=== PATIENT | female | born 1935 | race Caucasian/White ===

== ENCOUNTER 2020-12-21 11:18 | Inpatient (IN) | payer OTHER, BC ==
[2020-12-21 12:28] LABS: BASO % 0.9 % (0-2.0); EOS % 2.5 % (0-4.5); HEMATOCRIT 30.8 % (32.4-45.2); HEMOGLOBIN 9.8 GM/dL (10.7-15.3); LYMPH % 15.1 % (8-40); MCHC 31.9 g/dl (32.0-36.0); MEAN CELL VOLUME 57.3 fl (80-96); MEAN PLT VOLUME 8.3 fl (7.5-11.1); NEUT % 73.5 % (42.8-82.8); PLATELET COUNT 347 K/MM3 (134-434); RBC 5.37 M/mm3 (3.60-5.2); RDW 17.1 % (11.6-15.6); WHITE BLOOD COUNT 8.2 K/mm3 (4.0-10.0)
[2020-12-21] MEDS ORDERED: ACETAMINOPHEN WITH CODEINE 300MG/30MG TABLET PO ONE (12:35)
[2020-12-21 12:39] LABS: INR 1.36 (0.83-1.09); PROTHROMBIN TIME (PATIENT) 16.3 SEC (9.7-13.0)
[2020-12-21 12:42] LABS: ACTIVATED PTT 30.9 SECONDS (25.2-36.5)
[2020-12-21 12:46] LABS: MCH 18.3 pg (25.7-33.7)
[2020-12-21 12:51] LABS: CHLORIDE 104 mmol/L (98-107); SODIUM 136 mmol/L (136-145)
[2020-12-21] MEDS ORDERED: ACETAMINOPHEN WITH CODEINE 300MG/30MG TABLET ONE (12:53)
[2020-12-21 12:55] LABS: ALBUMIN 3.5 g/dl (3.4-5.0); ANION GAP 7 MMOL/L (8-16); BLOOD UREA NITROGEN 42.1 mg/dL (7-18); CALCIUM 8.8 mg/dL (8.5-10.1); CO2 25 mmol/L (21-32); LIPASE 90 U/L (73-393)
[2020-12-21 12:56] LABS: GLUCOSE,RANDOM 97 mg/dL (74-106); MAGNESIUM 2.3 mg/dL (1.8-2.4)
[2020-12-21 12:58] LABS: CREATININE 1.8 mg/dL (0.55-1.3); PHOSPHOROUS 4.7 mg/dL (2.5-4.9); SGOT/AST 22 U/L (15-37); SGPT/ALT 11 U/L (13-61)
[2020-12-21 13:00] LABS: BILIRUBIN,TOTAL 0.6 mg/dL (0.2-1); TOT PROT 7.3 g/dl (6.4-8.2)
[2020-12-21 13:01] LABS: ALK PHOS 78 U/L (45-117)
[2020-12-21 14:42] LABS: ANISOCYTOSIS 2+; MACROCYTOSIS 0; OVALOCYTE 1+; PLATELET ESTIMATE NORMAL
[2020-12-21] MEDS ORDERED: ACETAMINOPHEN WITH CODEINE 300MG/30MG TABLET PO PRN (22:05)
[2020-12-21] MEDS ORDERED: ARIPiprazole 10 MG TABLET PO SCH (22:15)
[2020-12-21] MEDS ORDERED: CHOLECALCIFEROL (VIT D3) 1,000 UNIT (25 MCG) TABLET PO SCH (22:15)
[2020-12-21 22:28] LABS: INR 1.44 (0.83-1.09); PROTHROMBIN TIME (PATIENT) 17.2 SEC (9.7-13.0)
[2020-12-21] MEDS ORDERED: SODIUM CHLORIDE 0.45% 1,000 ML IV SCH (22:45)
[2020-12-21] MEDS ORDERED: metoPROLOL SUCCINATE 25 MG TAB.SR.24H (FP) PO ONE (23:00)
[2020-12-21] MEDS ORDERED: dilTIAZem HCL 60 MG TABLET PO ONE (23:00)
[2020-12-21] MEDS: ACETAMINOPHEN WITH CODEINE 300MG/30MG TABLET PO PRN (23:00)
[2020-12-21] MEDS: WARFARIN NA 3 MG TABLET PO SCH (23:01)
[2020-12-21] MEDS: ENOXAPARIN NA (PORCINE) 100 MG/1 ML DISP.SYRIN SQ SCH (23:02)
[2020-12-21 23:33] VITALS: BMI 41.3
[2020-12-22 07:53] LABS: BASO % 0.7 % (0-2.0); EOS % 3.9 % (0-4.5); HEMOGLOBIN 9.1 GM/dL (10.7-15.3); LYMPH % 21.9 % (8-40); MCHC 31.4 g/dl (32.0-36.0); MEAN CELL VOLUME 57.9 fl (80-96); MEAN PLT VOLUME 8.9 fl (7.5-11.1); NEUT % 64.5 % (42.8-82.8); PLATELET COUNT 292 K/MM3 (134-434); RBC 5.01 M/mm3 (3.60-5.2)
[2020-12-22 07:56] LABS: MCH 18.2 pg (25.7-33.7)
[2020-12-22 08:13] LABS: BLOOD UREA NITROGEN 43.6 mg/dL (7-18)
[2020-12-22 08:14] LABS: CALCIUM 8.3 mg/dL (8.5-10.1); MAGNESIUM 2.1 mg/dL (1.8-2.4)
[2020-12-22 08:18] LABS: PHOSPHOROUS 4.7 mg/dL (2.5-4.9)
[2020-12-22 08:19] LABS: BILIRUBIN,TOTAL 0.9 mg/dL (0.2-1); TOT PROT 6.3 g/dl (6.4-8.2)
[2020-12-22 09:02] LABS: EPI CELLS 17 /uL (0-25.1); HYALINE CASTS 5 /uL (0-3.1); PH,URINE 6.5 (5.0-8.0); URINE APPEARANCE TURBID; URINE BACTERIA 2330 /uL (0-1359); URINE BILIRUBIN NEGATIVE (NEGATIVE); URINE COLOR YELLOW; URINE GLUCOSE (UA) NEGATIVE (NEGATIVE); URINE KETONE NEGATIVE (NEGATIVE); URINE LEUK ESTERASE 3+ (NEGATIVE); URINE NITRITE NEGATIVE (NEGATIVE); URINE PROTEIN 2+ (NEGATIVE); URINE RBC 659 /uL (0-23.9); URINE UROBILINOGEN 0.2 mg/dL (0.2-1.0); URINE WBC 4303 /uL (0-25.8)
[2020-12-22] MEDS ORDERED: PT OWN MED DRAWER 7, Y5N ONE ×2 (09:49→20:46)
[2020-12-22] MEDS ORDERED: metoPROLOL SUCCINATE 25 MG TAB.SR.24H (FP) PO SCH (10:00)
[2020-12-22] MEDS ORDERED: FLU VACCINE (FLULAVAL) PF 60 MCG/0.5 ML SYRINGE 2020-2021 IM ONE (10:00)
[2020-12-22] MEDS: GABAPENTIN 100 MG CAPSULE PO SCH ×2 (10:20→21:01)
[2020-12-22] MEDS: CHOLECALCIFEROL (VIT D3) 1,000 UNIT (25 MCG) TABLET PO SCH (10:20)
[2020-12-22] MEDS: ASCORBIC ACID 250 MG TABLET (FP) PO SCH (10:20)
[2020-12-22] MEDS: dilTIAZem HCL 60 MG TABLET PO SCH ×2 (10:20→21:01)
[2020-12-22] MEDS: metoPROLOL SUCCINATE 25 MG TAB.SR.24H (FP) PO SCH ×2 (10:20→21:02)
[2020-12-22] MEDS: MULTIVITAMINS (DAILY MVI) TABLET (FP) PO SCH (10:20)
[2020-12-22] MEDS: ARIPiprazole 10 MG TABLET PO SCH (10:20)
[2020-12-22] MEDS: TICAGRELOR 90 MG TABLET PO SCH ×2 (10:21→21:02)
[2020-12-22] MEDS: ACETAMINOPHEN WITH CODEINE 300MG/30MG TABLET PO PRN ×3 (10:21→22:20)
[2020-12-22] MEDS: ENOXAPARIN NA (PORCINE) 100 MG/1 ML DISP.SYRIN SQ SCH (10:21)
[2020-12-22] MEDS: WARFARIN NA 3 MG TABLET PO SCH (17:22)
[2020-12-22] MEDS: PANTOPRAZOLE 40 MG TABLET PO SCH (17:22)
[2020-12-22 19:15] LABS: EPI CELLS 17 /uL (0-25.1); HYALINE CASTS 3 /uL (0-3.1); PH,URINE 6.5 (5.0-8.0); URINE APPEARANCE TURBID; URINE BACTERIA 856 /uL (0-1359); URINE BILIRUBIN NEGATIVE (NEGATIVE); URINE COLOR YELLOW; URINE GLUCOSE (UA) NEGATIVE (NEGATIVE); URINE KETONE NEGATIVE (NEGATIVE); URINE LEUK ESTERASE 3+ (NEGATIVE); URINE NITRITE NEGATIVE (NEGATIVE); URINE PROTEIN 2+ (NEGATIVE); URINE RBC 2181 /uL (0-23.9); URINE UROBILINOGEN 0.2 mg/dL (0.2-1.0); URINE WBC 11966 /uL (0-25.8)
[2020-12-22] MEDS: AMOX TR/POT CLAV 500MG/125MG TABLETS (FP) PO SCH (19:23)
[2020-12-23 08:02] LABS: INR 1.44 (0.83-1.09); PROTHROMBIN TIME (PATIENT) 17.5 SEC (9.7-13.0)
[2020-12-23 08:08] LABS: HEMATOCRIT 30.7 % (32.4-45.2); HEMOGLOBIN 9.6 GM/dL (10.7-15.3); MCHC 31.2 g/dl (32.0-36.0); MEAN CELL VOLUME 58.5 fl (80-96); MEAN PLT VOLUME 8.7 fl (7.5-11.1); PLATELET COUNT 280 K/MM3 (134-434); RBC 5.26 M/mm3 (3.60-5.2); RDW 17.1 % (11.6-15.6)
[2020-12-23 08:17] LABS: MCH 18.3 pg (25.7-33.7)
[2020-12-23 08:29] LABS: CALCIUM 8.6 mg/dL (8.5-10.1)
[2020-12-23 08:30] LABS: BLOOD UREA NITROGEN 44.7 mg/dL (7-18); MAGNESIUM 2.2 mg/dL (1.8-2.4)
[2020-12-23 08:33] LABS: CREATININE 1.8 mg/dL (0.55-1.3); PHOSPHOROUS 4.4 mg/dL (2.5-4.9)
[2020-12-23 08:34] LABS: BILIRUBIN,TOTAL 1.2 mg/dL (0.2-1); TOT PROT 6.6 g/dl (6.4-8.2)
[2020-12-23] MEDS ORDERED: PT OWN MED DRAWER 7, Y5N ONE ×2 (09:26→21:07)
[2020-12-23] MEDS: ACETAMINOPHEN WITH CODEINE 300MG/30MG TABLET PO PRN ×4 (09:34→23:23)
[2020-12-23] MEDS: ASCORBIC ACID 250 MG TABLET (FP) PO SCH (09:34)
[2020-12-23] MEDS: GABAPENTIN 100 MG CAPSULE PO SCH ×2 (09:34→21:24)
[2020-12-23] MEDS: metoPROLOL SUCCINATE 25 MG TAB.SR.24H (FP) PO SCH ×2 (09:35→21:25)
[2020-12-23] MEDS: CHOLECALCIFEROL (VIT D3) 1,000 UNIT (25 MCG) TABLET PO SCH (09:35)
[2020-12-23] MEDS: dilTIAZem HCL 60 MG TABLET PO SCH ×2 (09:35→21:25)
[2020-12-23] MEDS: PANTOPRAZOLE 40 MG TABLET PO SCH (09:35)
[2020-12-23] MEDS: ARIPiprazole 10 MG TABLET PO SCH (09:35)
[2020-12-23] MEDS: AMOX TR/POT CLAV 500MG/125MG TABLETS (FP) PO SCH ×2 (09:35→17:53)
[2020-12-23] MEDS: MULTIVITAMINS (DAILY MVI) TABLET (FP) PO SCH (09:35)
[2020-12-23] MEDS: TICAGRELOR 90 MG TABLET PO SCH ×2 (09:35→21:25)
[2020-12-23] MEDS: WARFARIN NA 3 MG TABLET PO SCH (17:53)
[2020-12-23] MEDS ORDERED: WARFARIN NA 5 MG TABLET PO SCH (18:00)
[2020-12-24] MEDS: ACETAMINOPHEN 325 MG TABLET (FP) PO PRN (06:57)
[2020-12-24 07:20] LABS: HEMATOCRIT 28.4 % (32.4-45.2); MCHC 31.7 g/dl (32.0-36.0); MEAN CELL VOLUME 57.4 fl (80-96); MEAN PLT VOLUME 8.5 fl (7.5-11.1); PLATELET COUNT 291 K/MM3 (134-434); RBC 4.94 M/mm3 (3.60-5.2); WHITE BLOOD COUNT 7.2 K/mm3 (4.0-10.0)
[2020-12-24 07:22] LABS: MCH 18.2 pg (25.7-33.7)
[2020-12-24 07:30] LABS: INR 1.54 (0.83-1.09); PROTHROMBIN TIME (PATIENT) 18.4 SEC (9.7-13.0)
[2020-12-24 07:54] LABS: CALCIUM 8.4 mg/dL (8.5-10.1)
[2020-12-24 07:55] LABS: ALBUMIN 2.8 g/dl (3.4-5.0); BLOOD UREA NITROGEN 42.5 mg/dL (7-18)
[2020-12-24 07:58] LABS: CREATININE 1.7 mg/dL (0.55-1.3)
[2020-12-24 08:00] LABS: BILIRUBIN,TOTAL 0.6 mg/dL (0.2-1); TOT PROT 6.1 g/dl (6.4-8.2)
[2020-12-24] MEDS ORDERED: DOXYCYCLINE HYCLATE 100 MG VIAL ONE ×2 (09:55→20:51)
[2020-12-24] MEDS ORDERED: DEXTROSE 5%-WATER 100 ML IVPB ONE ×2 (09:55→20:52)
[2020-12-24] MEDS ORDERED: PT OWN MED DRAWER 7, Y5N ONE ×2 (09:55→20:53)
[2020-12-24] MEDS: DOXYCYCLINE INJECTION 100 MG in DEXTROSE 5%-WATER 100 ML IVPB SCH ×2 (10:20→21:06)
[2020-12-24] MEDS: MULTIVITAMINS (DAILY MVI) TABLET (FP) PO SCH (10:21)
[2020-12-24] MEDS: dilTIAZem HCL 60 MG TABLET PO SCH ×2 (10:21→21:07)
[2020-12-24] MEDS: PANTOPRAZOLE 40 MG TABLET PO SCH (10:21)
[2020-12-24] MEDS: metoPROLOL SUCCINATE 25 MG TAB.SR.24H (FP) PO SCH ×2 (10:21→21:07)
[2020-12-24] MEDS: GABAPENTIN 100 MG CAPSULE PO SCH ×2 (10:21→21:07)
[2020-12-24] MEDS: CHOLECALCIFEROL (VIT D3) 1,000 UNIT (25 MCG) TABLET PO SCH (10:21)
[2020-12-24] MEDS: ARIPiprazole 10 MG TABLET PO SCH ×2 (10:22→16:38)
[2020-12-24] MEDS: ASCORBIC ACID 250 MG TABLET (FP) PO SCH (10:23)
[2020-12-24] MEDS: TICAGRELOR 90 MG TABLET PO SCH ×2 (10:23→21:33)
[2020-12-24] MEDS ORDERED: BISACODYL 5 MG TABLET.DR (FP) PO PRN (10:46)
[2020-12-24] MEDS: ACETAMINOPHEN WITH CODEINE 300MG/30MG TABLET PO PRN ×2 (14:43→18:46)
[2020-12-24] MEDS ORDERED: DOCUSATE NA 100 MG/10 ML UNIT-DOSE CUPS PO PRN (15:38)
[2020-12-24] MEDS: POLYETHYLENE GLYCOL 3350 119 GM BTL PO SCH (16:36)
[2020-12-24] MEDS: WARFARIN NA 3 MG TABLET PO SCH (18:45)
[2020-12-25] MEDS ORDERED: ACETAMINOPHEN WITH CODEINE 300MG/30MG TABLET PO ONE (00:58)
[2020-12-25] MEDS ORDERED: PT OWN MED DRAWER 7, Y5N ONE ×2 (01:02→09:11)
[2020-12-25 07:11] LABS: HEMATOCRIT 29.5 % (32.4-45.2); HEMOGLOBIN 9.5 GM/dL (10.7-15.3); MCHC 32.1 g/dl (32.0-36.0); MEAN PLT VOLUME 8.5 fl (7.5-11.1); PLATELET COUNT 306 K/MM3 (134-434); RBC 5.08 M/mm3 (3.60-5.2); RDW 17.1 % (11.6-15.6); WHITE BLOOD COUNT 9.1 K/mm3 (4.0-10.0)
[2020-12-25 07:16] LABS: MCH 18.6 pg (25.7-33.7)
[2020-12-25 07:23] LABS: INR 1.52 (0.83-1.09); PROTHROMBIN TIME (PATIENT) 18.5 SEC (9.7-13.0)
[2020-12-25 07:36] LABS: BLOOD UREA NITROGEN 35.3 mg/dL (7-18)
[2020-12-25 07:39] LABS: CREATININE 1.5 mg/dL (0.55-1.3)
[2020-12-25 07:40] LABS: BILIRUBIN,TOTAL 0.7 mg/dL (0.2-1); TOT PROT 6.6 g/dl (6.4-8.2)
[2020-12-25 07:48] VITALS: TEMP 98.7
[2020-12-25] MEDS: ACETAMINOPHEN 325 MG TABLET (FP) PO PRN ×2 (08:16→18:46)
[2020-12-25] MEDS ORDERED: DOXYCYCLINE HYCLATE 100 MG VIAL ONE (09:10)
[2020-12-25] MEDS ORDERED: DEXTROSE 5%-WATER 100 ML IVPB ONE (09:11)
[2020-12-25] MEDS: CHOLECALCIFEROL (VIT D3) 1,000 UNIT (25 MCG) TABLET PO SCH (09:59)
[2020-12-25] MEDS: GABAPENTIN 100 MG CAPSULE PO SCH (10:00)
[2020-12-25] MEDS: ASCORBIC ACID 250 MG TABLET (FP) PO SCH (10:00)
[2020-12-25] MEDS: TICAGRELOR 90 MG TABLET PO SCH (10:00)
[2020-12-25] MEDS: ARIPiprazole 10 MG TABLET PO SCH (10:00)
[2020-12-25] MEDS: dilTIAZem HCL 60 MG TABLET PO SCH (10:00)
[2020-12-25] MEDS: PANTOPRAZOLE 40 MG TABLET PO SCH (10:01)
[2020-12-25] MEDS: MULTIVITAMINS (DAILY MVI) TABLET (FP) PO SCH (10:01)
[2020-12-25] MEDS: POLYETHYLENE GLYCOL 3350 119 GM BTL PO SCH (10:01)
[2020-12-25] MEDS: DOXYCYCLINE INJECTION 100 MG in DEXTROSE 5%-WATER 100 ML IVPB SCH (10:02)
[2020-12-25] MEDS: metoPROLOL SUCCINATE 25 MG TAB.SR.24H (FP) PO SCH (10:02)
[2020-12-25 18:30] VITALS: BP 121/67; PULSE 75
[2020-12-25] MEDS: WARFARIN NA 3 MG TABLET PO SCH (18:46)
== END 2020-12-25 19:22 | disposition home or self-care (01) | DRG 690 ==
LOC: JER 11:18 → OBSVTOIN 16:00 → JERBED 16:00 → J4W 21:50
PROVIDERS: ADMIT Internal Medicine
DX: N39.0 Urinary tract infection, site not specified (principal); N17.9 Acute kidney failure, unspecified; I48.92 Unspecified atrial flutter; Z68.41 Body mass index [BMI] 40.0-44.9, adult; I25.10 Atherosclerotic heart disease of native coronary artery without angina pectoris; I48.91 Unspecified atrial fibrillation; E78.5 Hyperlipidemia, unspecified; D56.9 Thalassemia, unspecified; E66.9 Obesity, unspecified; Z95.5 Presence of coronary angioplasty implant and graft; I12.9 Hypertensive chronic kidney disease with stage 1 through stage 4 chronic kidney disease, or unspecified chronic kidney disease; N18.9 Chronic kidney disease, unspecified; R07.89 Other chest pain; R31.29 Other microscopic hematuria
CPT/HCPCS: 36415; 71045-TC-FY; 76775-TC; 76856-TC; 80053; 81003; 82272; 82436; 82550; 82565; 83690; 83735; 84100; 84133; 84300; 84484; 85025; 85027; 85610; 85730; 87086; 87186; 87205; 93005; 93010; 94010; 99285-25; C9803; G0008; Q2036; U0003

== ENCOUNTER 2021-02-22 18:43 | Inpatient (IN) | payer OTHER, BC ==
[2021-02-22] MEDS ORDERED: ACETAMINOPHEN WITH CODEINE 300MG/30MG TABLET PO ONE (20:17)
[2021-02-22 20:30] LABS: BASO % 0.3 % (0-2.0); EOS % 0.4 % (0-4.5); HEMATOCRIT 22.8 % (32.4-45.2); HEMOGLOBIN 7.4 GM/dL (10.7-15.3); LYMPH % 7.4 % (8-40); MCHC 32.4 g/dl (32.0-36.0); MEAN CELL VOLUME 56.1 fl (80-96); MEAN PLT VOLUME 8.7 fl (7.5-11.1); MONO % 7.1 % (3.8-10.2); NEUT % 84.8 % (42.8-82.8); PLATELET COUNT 329 K/MM3 (134-434); RBC 4.06 M/mm3 (3.60-5.2); RDW 16.3 % (11.6-15.6); WHITE BLOOD COUNT 8.7 K/mm3 (4.0-10.0)
[2021-02-22] MEDS ORDERED: ACETAMINOPHEN WITH CODEINE 300MG/30MG TABLET ONE (20:35)
[2021-02-22 20:36] LABS: MCH 18.2 pg (25.7-33.7)
[2021-02-22 20:44] LABS: INR 2.04 (0.83-1.09); PROTHROMBIN TIME (PATIENT) 24.6 SEC (9.7-13.0)
[2021-02-22 20:47] LABS: ACTIVATED PTT 41.3 SECONDS (25.2-36.5)
[2021-02-22 20:54] LABS: MAGNESIUM 2.1 mg/dL (1.8-2.4)
[2021-02-22 20:56] LABS: BLOOD UREA NITROGEN 34.5 mg/dL (7-18)
[2021-02-22 21:00] LABS: BILIRUBIN,TOTAL 0.3 mg/dL (0.2-1)
[2021-02-22 21:01] LABS: TOT PROT 6.8 g/dl (6.4-8.2)
[2021-02-22 21:04] LABS: N-TERMINAL BNP 3786.9 pg/ml (5-450)
[2021-02-22 23:40] LABS: EPI CELLS 0 /uL (0-25.1); HYALINE CASTS 56 /uL (0-3.1); PH,URINE 6.5 (5.0-8.0); URINE APPEARANCE TURBID; URINE BILIRUBIN 1+ (NEGATIVE); URINE COLOR RED; URINE GLUCOSE (UA) NEGATIVE (NEGATIVE); URINE KETONE NEGATIVE (NEGATIVE); URINE LEUK ESTERASE 3+ (NEGATIVE); URINE NITRITE POSITIVE (NEGATIVE); URINE PROTEIN 3+ (NEGATIVE); URINE UROBILINOGEN 0.2 mg/dL (0.2-1.0); URINE WBC 3134 /uL (0-25.8)
[2021-02-22] MEDS ORDERED: CEFTRIAXONE 1,000 MG in DEXTROSE 5%-WATER - 50 ML IVPB ONE (23:41)
[2021-02-22 23:43] LABS: ANISOCYTOSIS 2+; MACROCYTOSIS 0; OVALOCYTE 1+; PLATELET ESTIMATE NORMAL; TARGET CELLS 1+
[2021-02-22] MEDS ORDERED: CEFTRIAXONE 1 GM/50 ML BAG ONE (23:44)
[2021-02-23 00:16] LABS: URINE RBC 46247 /uL (0-23.9)
[2021-02-23] MEDS ORDERED: HEPARIN NA (PORCINE) 5,000 UNITS/ML 1ML VIAL SQ SCH (02:00)
[2021-02-23] MEDS ORDERED: FUROSEMIDE 40 MG/4 ML INJECTABLE VIAL IVPUSH ONE (02:04)
[2021-02-23] MEDS ORDERED: MEROPENEM 500 MG in DEXTROSE 5%-WATER 100 ML IVPB ONE (02:05)
[2021-02-23] MEDS ORDERED: MEROPENEM 500 MG in DEXTROSE 5%-WATER 100 ML IVPB SCH ×2 (02:30→02:45)
[2021-02-23] MEDS ORDERED: MEROPENEM 500 MG VIAL (RESTRICTED TO ID) IVPB ONE (02:46)
[2021-02-23] MEDS ORDERED: FUROSEMIDE 40 MG/4 ML INJECTABLE VIAL ONE (02:46)
[2021-02-23] MEDS ORDERED: DOCUSATE NA 100 MG/10 ML UNIT-DOSE CUPS PO PRN (06:17)
[2021-02-23] MEDS ORDERED: ACETAMINOPHEN 325 MG TABLET (FP) PO PRN (06:50)
[2021-02-23] MEDS: ACETAMINOPHEN WITH CODEINE 300MG/30MG TABLET PO PRN ×3 (07:00→19:59)
[2021-02-23 07:29] LABS: BASO % 0.6 % (0-2.0); EOS % 1.4 % (0-4.5); HEMATOCRIT 25.5 % (32.4-45.2); HEMOGLOBIN 8.5 GM/dL (10.7-15.3); LYMPH % 7.7 % (8-40); MCHC 33.1 g/dl (32.0-36.0); MEAN CELL VOLUME 59.5 fl (80-96); MEAN PLT VOLUME 8.4 fl (7.5-11.1); MONO % 7.5 % (3.8-10.2); NEUT % 82.8 % (42.8-82.8); PLATELET COUNT 322 K/MM3 (134-434); RBC 4.29 M/mm3 (3.60-5.2); RDW 16.8 % (11.6-15.6); WHITE BLOOD COUNT 9.5 K/mm3 (4.0-10.0)
[2021-02-23 07:35] LABS: MCH 19.7 pg (25.7-33.7)
[2021-02-23 07:39] LABS: CALCIUM 8.2 mg/dL (8.5-10.1)
[2021-02-23 07:40] LABS: MAGNESIUM 2.2 mg/dL (1.8-2.4)
[2021-02-23 07:43] LABS: CREATININE 1.9 mg/dL (0.55-1.3)
[2021-02-23 07:44] LABS: TOT PROT 6.8 g/dl (6.4-8.2)
[2021-02-23 07:46] LABS: BILIRUBIN,TOTAL 1.9 mg/dL (0.2-1)
[2021-02-23] MEDS ORDERED: KCL 10 MEQ IVPB 10 MEQ/100 ML INFUS.BAG IVPB SCH (09:30)
[2021-02-23] MEDS: DOCUSATE SODIUM 100 MG CAPSULE (FP) PO SCH ×2 (09:38→22:21)
[2021-02-23] MEDS: PANTOPRAZOLE SODIUM 40 MG VIAL IVPUSH SCH ×2 (09:38→22:21)
[2021-02-23] MEDS: metoPROLOL SUCCINATE 25 MG TAB.SR.24H (FP) PO SCH ×2 (09:38→22:21)
[2021-02-23] MEDS: NITROGLYCERIN SUBLINGUAL 1/150 0.4 MG TAB SL PRN ×2 (10:00→22:44)
[2021-02-23] MEDS ORDERED: NITROGLYCERIN SUBLINGUAL 1/150 0.4 MG TAB ONE ×2 (11:45→14:22)
[2021-02-23] MEDS ORDERED: POTASSIUM CHLORIDE ORAL LIQUID 20 MEQ/15 ML PO ONE (12:00)
[2021-02-23 17:33] LABS: INR 2.29 (0.83-1.09)
[2021-02-23] MEDS ORDERED: WARFARIN NA 3 MG TABLET PO SCH (18:00)
[2021-02-24] MEDS: ACETAMINOPHEN WITH CODEINE 300MG/30MG TABLET PO PRN ×2 (04:56→13:12)
[2021-02-24 08:17] LABS: INR 2.04 (0.83-1.09); PROTHROMBIN TIME (PATIENT) 24.6 SEC (9.7-13.0)
[2021-02-24 08:29] LABS: CREATININE 1.9 mg/dL (0.55-1.3)
[2021-02-24 08:30] LABS: ALBUMIN 2.9 g/dl (3.4-5.0); CALCIUM 8.1 mg/dL (8.5-10.1)
[2021-02-24 08:31] LABS: BILIRUBIN,TOTAL 0.6 mg/dL (0.2-1); BLOOD UREA NITROGEN 33.4 mg/dL (7-18); MAGNESIUM 2.1 mg/dL (1.8-2.4)
[2021-02-24 08:33] LABS: PHOSPHOROUS 4.2 mg/dL (2.5-4.9)
[2021-02-24 09:27] LABS: BASO % 0.6 % (0-2.0); EOS % 2.5 % (0-4.5); HEMOGLOBIN 8.8 GM/dL (10.7-15.3); LYMPH % 19.1 % (8-40); MCHC 32.6 g/dl (32.0-36.0); MEAN CELL VOLUME 59.3 fl (80-96); MEAN PLT VOLUME 8.5 fl (7.5-11.1); MONO % 7.2 % (3.8-10.2); NEUT % 70.6 % (42.8-82.8); PLATELET COUNT 359 K/MM3 (134-434); RBC 4.55 M/mm3 (3.60-5.2); RDW 16.8 % (11.6-15.6); WHITE BLOOD COUNT 7.2 K/mm3 (4.0-10.0)
[2021-02-24 09:30] LABS: MCH 19.4 pg (25.7-33.7)
[2021-02-24] MEDS: DOCUSATE SODIUM 100 MG CAPSULE (FP) PO SCH ×2 (10:11→21:06)
[2021-02-24] MEDS: PANTOPRAZOLE SODIUM 40 MG VIAL IVPUSH SCH ×2 (10:12→21:06)
[2021-02-24] MEDS: metoPROLOL SUCCINATE 25 MG TAB.SR.24H (FP) PO SCH ×2 (10:12→21:06)
[2021-02-24] MEDS ORDERED: PIPERACILLIN/TAZOBACTAM 2.25 GM VIAL IVPB ONE (13:59)
[2021-02-24] MEDS: PIPERACILLIN/TAZOB 2.25 GM 2.25 GM in DEXTROSE 5%-WATER - 50 ML IVPB SCH ×2 (14:12→18:20)
[2021-02-24] MEDS ORDERED: MINERAL OIL ENEMA 133 ML ENEMA PR ONE (18:31)
[2021-02-25] MEDS ORDERED: DEXTROSE 5%-WATER - 50 ML IVPB ONE ×4 (01:08→16:53)
[2021-02-25] MEDS ORDERED: PIPERACILLIN/TAZOBACTAM 2.25 GM VIAL IVPB ONE ×4 (01:08→16:53)
[2021-02-25] MEDS: PIPERACILLIN/TAZOB 2.25 GM 2.25 GM in DEXTROSE 5%-WATER - 50 ML IVPB SCH ×3 (01:17→20:00)
[2021-02-25 08:06] LABS: INR 1.61 (0.83-1.09); PROTHROMBIN TIME (PATIENT) 19.2 SEC (9.7-13.0)
[2021-02-25 08:08] LABS: ACTIVATED PTT 32.4 SECONDS (25.2-36.5)
[2021-02-25 08:12] LABS: BASO % 0.5 % (0-2.0); EOS % 3.2 % (0-4.5); HEMATOCRIT 27.5 % (32.4-45.2); HEMOGLOBIN 8.9 GM/dL (10.7-15.3); LYMPH % 21.3 % (8-40); MCHC 32.4 g/dl (32.0-36.0); MEAN CELL VOLUME 59.4 fl (80-96); MEAN PLT VOLUME 7.5 fl (7.5-11.1); MONO % 7.1 % (3.8-10.2); NEUT % 67.9 % (42.8-82.8); PLATELET COUNT 414 K/MM3 (134-434); RBC 4.62 M/mm3 (3.60-5.2); RDW 16.9 % (11.6-15.6); WHITE BLOOD COUNT 8.8 K/mm3 (4.0-10.0)
[2021-02-25 08:13] LABS: MCH 19.2 pg (25.7-33.7)
[2021-02-25 08:18] LABS: BLOOD UREA NITROGEN 30.9 mg/dL (7-18); CALCIUM 8.4 mg/dL (8.5-10.1); MAGNESIUM 2.1 mg/dL (1.8-2.4)
[2021-02-25 08:22] LABS: CREATININE 1.7 mg/dL (0.55-1.3); PHOSPHOROUS 4.4 mg/dL (2.5-4.9)
[2021-02-25 08:23] LABS: BILIRUBIN,TOTAL 0.9 mg/dL (0.2-1)
[2021-02-25] MEDS: PANTOPRAZOLE SODIUM 40 MG VIAL IVPUSH SCH ×2 (09:17→21:32)
[2021-02-25] MEDS: metoPROLOL SUCCINATE 25 MG TAB.SR.24H (FP) PO SCH ×2 (09:17→21:32)
[2021-02-25] MEDS: DOCUSATE SODIUM 100 MG CAPSULE (FP) PO SCH ×2 (09:17→21:39)
[2021-02-25] MEDS ORDERED: HEPARIN NA (PORCINE) 5,000 UNITS/ML 1ML VIAL IVPUSH ONE ×2 (12:18)
[2021-02-25] MEDS ORDERED: HEPARIN NA (PORCINE) 5,000 UNITS/ML 1ML VIAL IVPUSH PRN ×2 (12:18)
[2021-02-25] MEDS ORDERED: HEPARIN INFUSION - 25,000 UNITS/500 ML INFUS.BAG IVPB SCH (12:30)
[2021-02-25] MEDS ORDERED: VANCOMYCIN 1 GM in D5W (PRE-DOCKED) 1,000 MG/250 ML IVPB ONE (13:37)
[2021-02-25] MEDS ORDERED: ACETAMINOPHEN 325 MG TABLET (FP) ONE (14:58)
[2021-02-25] MEDS: AMINO ACIDS/PROTEIN HYDROLYS 30 ML LIQUID.PKT PO SCH (17:09)
[2021-02-25] MEDS: dilTIAZem HCL 60 MG TABLET PO SCH (21:32)
[2021-02-26] MEDS ORDERED: PIPERACILLIN/TAZOBACTAM 2.25 GM VIAL IVPB ONE ×3 (01:39→17:39)
[2021-02-26] MEDS ORDERED: DEXTROSE 5%-WATER - 50 ML IVPB ONE ×3 (01:39→17:40)
[2021-02-26] MEDS: PIPERACILLIN/TAZOB 2.25 GM 2.25 GM in DEXTROSE 5%-WATER - 50 ML IVPB SCH ×3 (01:41→17:47)
[2021-02-26] MEDS ORDERED: ACETAMINOPHEN 325 MG TABLET (FP) PO ONE (04:00)
[2021-02-26] MEDS: MORPHINE SULFATE 2 MG/ML VIAL IVPUSH ONE ×2 (04:43→16:05)
[2021-02-26 07:49] LABS: BASO % 0.8 % (0-2.0); EOS % 2.1 % (0-4.5); HEMATOCRIT 24.9 % (32.4-45.2); HEMOGLOBIN 8.1 GM/dL (10.7-15.3); LYMPH % 15.6 % (8-40); MCHC 32.5 g/dl (32.0-36.0); MEAN CELL VOLUME 59.5 fl (80-96); MEAN PLT VOLUME 8.7 fl (7.5-11.1); MONO % 6.7 % (3.8-10.2); NEUT % 74.8 % (42.8-82.8); PLATELET COUNT 357 K/MM3 (134-434); RBC 4.19 M/mm3 (3.60-5.2); RDW 16.8 % (11.6-15.6); WHITE BLOOD COUNT 5.8 K/mm3 (4.0-10.0)
[2021-02-26 07:53] LABS: MCH 19.3 pg (25.7-33.7)
[2021-02-26 08:21] LABS: CALCIUM 8.1 mg/dL (8.5-10.1)
[2021-02-26 08:22] LABS: ALBUMIN 2.9 g/dl (3.4-5.0); BLOOD UREA NITROGEN 29.9 mg/dL (7-18)
[2021-02-26 08:25] LABS: CREATININE 1.6 mg/dL (0.55-1.3); PHOSPHOROUS 4.2 mg/dL (2.5-4.9)
[2021-02-26 08:26] LABS: BILIRUBIN,TOTAL 0.7 mg/dL (0.2-1)
[2021-02-26 08:27] LABS: TOT PROT 6.7 g/dl (6.4-8.2)
[2021-02-26] MEDS: AMINO ACIDS/PROTEIN HYDROLYS 30 ML LIQUID.PKT PO SCH ×2 (08:39→17:47)
[2021-02-26 09:16] LABS: INR 1.51 (0.83-1.09); PROTHROMBIN TIME (PATIENT) 18.4 SEC (9.7-13.0)
[2021-02-26] MEDS: metoPROLOL SUCCINATE 25 MG TAB.SR.24H (FP) PO SCH ×3 (09:25→23:36)
[2021-02-26] MEDS: dilTIAZem HCL 60 MG TABLET PO SCH ×2 (09:25→23:29)
[2021-02-26] MEDS: PANTOPRAZOLE SODIUM 40 MG VIAL IVPUSH SCH ×2 (09:26→21:03)
[2021-02-26] MEDS: DOCUSATE SODIUM 100 MG CAPSULE (FP) PO SCH ×2 (09:53→21:03)
[2021-02-26] MEDS ORDERED: MULTIVIT-MINERALS ORAL LIQUID PO SCH (10:00)
[2021-02-26] MEDS ORDERED: ACETAMINOPHEN WITH CODEINE 300MG/30MG TABLET PO PRN (10:12)
[2021-02-26] MEDS ORDERED: GABAPENTIN 100 MG CAPSULE PO SCH (11:00)
[2021-02-26 12:34] LABS: ANISOCYTOSIS 1+; MACROCYTOSIS 0; PLATELET ESTIMATE NORMAL
[2021-02-26] MEDS ORDERED: PROPOFOL 20 ML ONE (13:24)
[2021-02-26] MEDS ORDERED: LIDOCAINE HCL 2% 100 MG/5 ML DISP.SYRIN ONE (13:24)
[2021-02-26] MEDS ORDERED: VANCOMYCIN 1 GM in D5W (PRE-DOCKED) 1,000 MG/250 ML IVPB ONE (14:00)
[2021-02-26] MEDS ORDERED: ACETAMINOPHEN INJECTION 100 ML IVPB ONE (14:41)
[2021-02-26] MEDS ORDERED: ONDANSETRON 4 MG/2 ML VIAL IVPUSH PRN (15:34)
[2021-02-26] MEDS ORDERED: DOCUSATE NA 100 MG/10 ML UNIT-DOSE CUPS PO PRN (15:38)
[2021-02-26] MEDS ORDERED: LACTATED RINGERS SOLUTION 1,000 ML IV SCH (15:45)
[2021-02-26] MEDS ORDERED: MORPHINE SULFATE 2 MG/ML VIAL ONE (16:03)
[2021-02-26] MEDS: NITROGLYCERIN SUBLINGUAL 1/150 0.4 MG TAB SL PRN ×5 (16:08→18:28)
[2021-02-26] MEDS: ACETAMINOPHEN WITH CODEINE 300MG/30MG TABLET PO PRN ×2 (17:44→23:29)
[2021-02-26] MEDS ORDERED: morphine SULFATE 4 MG/ML VIAL IVPUSH ONE (19:29)
[2021-02-26] MEDS ORDERED: MELATONIN 5 MG TABLETS PO ONE (21:00)
[2021-02-26] MEDS: GABAPENTIN 100 MG CAPSULE PO SCH (21:03)
[2021-02-26] MEDS ORDERED: metoPROLOL SUCCINATE 25 MG TAB.SR.24H (FP) PO SCH (22:00)
[2021-02-27] MEDS ORDERED: PIPERACILLIN/TAZOBACTAM 2.25 GM VIAL IVPB ONE ×3 (04:49→16:52)
[2021-02-27] MEDS ORDERED: DEXTROSE 5%-WATER - 50 ML IVPB ONE ×3 (04:49→16:52)
[2021-02-27] MEDS: PIPERACILLIN/TAZOB 2.25 GM 2.25 GM in DEXTROSE 5%-WATER - 50 ML IVPB SCH ×3 (04:51→17:08)
[2021-02-27 07:12] LABS: BASO % 0.2 % (0-2.0); HEMATOCRIT 24.2 % (32.4-45.2); HEMOGLOBIN 7.8 GM/dL (10.7-15.3); MCHC 32.1 g/dl (32.0-36.0); MEAN CELL VOLUME 60.3 fl (80-96); MEAN PLT VOLUME 7.2 fl (7.5-11.1); NEUT % 87.8 % (42.8-82.8); PLATELET COUNT 400 K/MM3 (134-434); RBC 4.02 M/mm3 (3.60-5.2); RDW 17.3 % (11.6-15.6)
[2021-02-27 07:13] LABS: INR 1.32 (0.83-1.09); PROTHROMBIN TIME (PATIENT) 16.1 SEC (9.7-13.0)
[2021-02-27 07:20] LABS: MCH 19.4 pg (25.7-33.7)
[2021-02-27 07:28] LABS: CHLORIDE 102 mmol/L (98-107); SODIUM 137 mmol/L (136-145)
[2021-02-27 07:37] LABS: ALBUMIN 2.9 g/dl (3.4-5.0); ANION GAP 9 MMOL/L (8-16); BLOOD UREA NITROGEN 38.4 mg/dL (7-18); CALCIUM 8.4 mg/dL (8.5-10.1); CO2 26 mmol/L (21-32); GLUCOSE,RANDOM 114 mg/dL (74-106); MAGNESIUM 2.1 mg/dL (1.8-2.4)
[2021-02-27 07:40] LABS: CREATININE 2.1 mg/dL (0.55-1.3); SGOT/AST 36 U/L (15-37); SGPT/ALT 11 U/L (13-61)
[2021-02-27 07:41] LABS: PHOSPHOROUS 6.1 mg/dL (2.5-4.9)
[2021-02-27 07:42] LABS: BILIRUBIN,TOTAL 0.8 mg/dL (0.2-1); TOT PROT 6.5 g/dl (6.4-8.2)
[2021-02-27 07:45] LABS: ALK PHOS 62 U/L (45-117)
[2021-02-27] MEDS ORDERED: FUROSEMIDE 40 MG/4 ML INJECTABLE VIAL IVPUSH ONE (09:15)
[2021-02-27] MEDS: GABAPENTIN 100 MG CAPSULE PO SCH ×2 (09:45→21:21)
[2021-02-27] MEDS: PANTOPRAZOLE SODIUM 40 MG VIAL IVPUSH SCH ×2 (09:45→21:21)
[2021-02-27] MEDS: DOCUSATE SODIUM 100 MG CAPSULE (FP) PO SCH ×2 (09:45→21:20)
[2021-02-27] MEDS: dilTIAZem HCL 60 MG TABLET PO SCH ×2 (09:45→21:20)
[2021-02-27] MEDS: metoPROLOL SUCCINATE 25 MG TAB.SR.24H (FP) PO SCH ×2 (09:45→21:21)
[2021-02-27] MEDS: MULTIVIT-MINERALS ORAL LIQUID PO SCH (09:46)
[2021-02-27] MEDS: AMINO ACIDS/PROTEIN HYDROLYS 30 ML LIQUID.PKT PO SCH ×2 (09:46→17:08)
[2021-02-27] MEDS ORDERED: HEPARIN NA (PORCINE) 5,000 UNITS/ML 1ML VIAL IVPUSH PRN (10:43)
[2021-02-27] MEDS ORDERED: PT OWN MED DRAWER 7, Y5N ONE (12:19)
[2021-02-27] MEDS: HEPARIN - 25,000 UNIT in SODIUM CHLORIDE 495 ML IV SCH (12:20)
[2021-02-27] MEDS: ACETAMINOPHEN WITH CODEINE 300MG/30MG TABLET PO PRN ×2 (16:25→21:06)
[2021-02-27] MEDS ORDERED: PIPERACILLIN/TAZOB 2.25 GM 2.25 GM in DEXTROSE 5%-WATER - 50 ML IVPB SCH (18:00)
[2021-02-27 18:01] LABS: HEMATOCRIT 25.8 % (32.4-45.2); HEMOGLOBIN 8.3 GM/dL (10.7-15.3); MCH 20.1 pg (25.7-33.7); MCHC 32.4 g/dl (32.0-36.0); MEAN CELL VOLUME 62.1 fl (80-96); MEAN PLT VOLUME 8.6 fl (7.5-11.1); PLATELET COUNT 384 K/MM3 (134-434); RBC 4.15 M/mm3 (3.60-5.2); RDW 22.9 % (11.6-15.6)
[2021-02-27] MEDS: HEPARIN NA (PORCINE) 5,000 UNITS/ML 1ML VIAL IVPUSH PRN (18:32)
[2021-02-27] MEDS: NITROGLYCERIN SUBLINGUAL 1/150 0.4 MG TAB SL PRN (21:10)
[2021-02-28] MEDS ORDERED: PIPERACILLIN/TAZOBACTAM 2.25 GM VIAL IVPB ONE ×3 (02:19→16:48)
[2021-02-28] MEDS ORDERED: DEXTROSE 5%-WATER - 50 ML IVPB ONE ×3 (02:19→16:48)
[2021-02-28] MEDS: PIPERACILLIN/TAZOB 2.25 GM 2.25 GM in DEXTROSE 5%-WATER - 50 ML IVPB SCH ×3 (02:34→17:04)
[2021-02-28 08:41] LABS: EOS % 1.7 % (0-4.5); HEMATOCRIT 24.5 % (32.4-45.2); HEMOGLOBIN 8.1 GM/dL (10.7-15.3); MCH 20.4 pg (25.7-33.7); MCHC 32.9 g/dl (32.0-36.0); MEAN CELL VOLUME 61.9 fl (80-96); MEAN PLT VOLUME 7.3 fl (7.5-11.1); MONO % 8.4 % (3.8-10.2); NEUT % 67.9 % (42.8-82.8); PLATELET COUNT 343 K/MM3 (134-434); RBC 3.95 M/mm3 (3.60-5.2); RDW 22.5 % (11.6-15.6); WHITE BLOOD COUNT 8.7 K/mm3 (4.0-10.0)
[2021-02-28 08:48] LABS: INR 1.17 (0.83-1.09); PROTHROMBIN TIME (PATIENT) 14.3 SEC (9.7-13.0)
[2021-02-28 08:51] LABS: ACTIVATED PTT 58.1 SECONDS (25.2-36.5)
[2021-02-28] MEDS ORDERED: PT OWN MED DRAWER 7, Y5N ONE (09:07)
[2021-02-28 09:09] LABS: CHLORIDE 102 mmol/L (98-107); SODIUM 137 mmol/L (136-145)
[2021-02-28 09:11] LABS: CALCIUM 8.6 mg/dL (8.5-10.1)
[2021-02-28 09:12] LABS: ALBUMIN 2.9 g/dl (3.4-5.0); ANION GAP 8 MMOL/L (8-16); BLOOD UREA NITROGEN 44.6 mg/dL (7-18); CO2 27 mmol/L (21-32); GLUCOSE,RANDOM 84 mg/dL (74-106)
[2021-02-28 09:15] LABS: CREATININE 2.2 mg/dL (0.55-1.3); PHOSPHOROUS 5.7 mg/dL (2.5-4.9); SGOT/AST 33 U/L (15-37); SGPT/ALT 11 U/L (13-61)
[2021-02-28 09:16] LABS: BILIRUBIN,TOTAL 0.5 mg/dL (0.2-1)
[2021-02-28 09:17] LABS: TOT PROT 6.6 g/dl (6.4-8.2)
[2021-02-28 09:18] LABS: ALK PHOS 62 U/L (45-117)
[2021-02-28] MEDS: PANTOPRAZOLE SODIUM 40 MG VIAL IVPUSH SCH ×2 (09:20→22:11)
[2021-02-28] MEDS: GABAPENTIN 100 MG CAPSULE PO SCH ×2 (09:20→22:10)
[2021-02-28] MEDS: DOCUSATE SODIUM 100 MG CAPSULE (FP) PO SCH ×3 (09:20→22:11)
[2021-02-28] MEDS: AMINO ACIDS/PROTEIN HYDROLYS 30 ML LIQUID.PKT PO SCH ×2 (09:20→17:04)
[2021-02-28] MEDS: dilTIAZem HCL 60 MG TABLET PO SCH ×2 (09:20→22:11)
[2021-02-28] MEDS: metoPROLOL SUCCINATE 25 MG TAB.SR.24H (FP) PO SCH ×2 (09:20→22:10)
[2021-02-28] MEDS: MULTIVIT-MINERALS ORAL LIQUID PO SCH (09:21)
[2021-02-28] MEDS: NITROGLYCERIN SUBLINGUAL 1/150 0.4 MG TAB SL PRN ×3 (09:28→20:57)
[2021-02-28] MEDS ORDERED: SODIUM CHLORIDE 0.45% 1,000 ML IV SCH (13:15)
[2021-02-28] MEDS: ACETAMINOPHEN WITH CODEINE 300MG/30MG TABLET PO PRN ×2 (13:39→22:46)
[2021-02-28] MEDS: HEPARIN - 25,000 UNIT in SODIUM CHLORIDE 495 ML IV SCH (15:16)
[2021-02-28 16:27] LABS: BASO % 0.6 % (0-2.0); EOS % 1.7 % (0-4.5); HEMATOCRIT 23.9 % (32.4-45.2); HEMOGLOBIN 7.9 GM/dL (10.7-15.3); LYMPH % 16.5 % (8-40); MCH 20.3 pg (25.7-33.7); MCHC 32.9 g/dl (32.0-36.0); MEAN CELL VOLUME 61.6 fl (80-96); MEAN PLT VOLUME 7.8 fl (7.5-11.1); MONO % 7.9 % (3.8-10.2); NEUT % 73.3 % (42.8-82.8); PLATELET COUNT 365 K/MM3 (134-434); RBC 3.88 M/mm3 (3.60-5.2); RDW 21.9 % (11.6-15.6); WHITE BLOOD COUNT 10.1 K/mm3 (4.0-10.0)
[2021-02-28] MEDS ORDERED: VANCOMYCIN 500 MG in DEXTROSE 5%-WATER - 100 ML IVPB ONE (16:48)
[2021-03-01] MEDS ORDERED: DEXTROSE 5%-WATER - 50 ML IVPB ONE ×3 (01:36→17:04)
[2021-03-01] MEDS ORDERED: PIPERACILLIN/TAZOBACTAM 2.25 GM VIAL IVPB ONE ×3 (01:36→17:03)
[2021-03-01] MEDS: PIPERACILLIN/TAZOB 2.25 GM 2.25 GM in DEXTROSE 5%-WATER - 50 ML IVPB SCH ×3 (01:39→17:18)
[2021-03-01] MEDS ORDERED: ACETAMINOPHEN WITH CODEINE 300MG/30MG TABLET PO PRN (02:56)
[2021-03-01] MEDS ORDERED: ACETAMINOPHEN 1000 MG/100 ML VIAL (NON FORMULARY) IVPB PRN (03:26)
[2021-03-01] MEDS: AMINO ACIDS/PROTEIN HYDROLYS 30 ML LIQUID.PKT PO SCH ×2 (07:50→17:17)
[2021-03-01 09:10] LABS: BASO % 0.3 % (0-2.0); EOS % 0.1 % (0-4.5); HEMATOCRIT 24.8 % (32.4-45.2); HEMOGLOBIN 7.8 GM/dL (10.7-15.3); LYMPH % 5.5 % (8-40); MCHC 31.4 g/dl (32.0-36.0); MEAN CELL VOLUME 62.7 fl (80-96); MEAN PLT VOLUME 7.6 fl (7.5-11.1); MONO % 5.1 % (3.8-10.2); PLATELET COUNT 318 K/MM3 (134-434); RBC 3.96 M/mm3 (3.60-5.2); RDW 24.3 % (11.6-15.6); WHITE BLOOD COUNT 16.8 K/mm3 (4.0-10.0)
[2021-03-01] MEDS ORDERED: PT OWN MED DRAWER 7, Y5N ONE (09:11)
[2021-03-01 09:12] LABS: MCH 19.7 pg (25.7-33.7)
[2021-03-01] MEDS: NITROGLYCERIN SUBLINGUAL 1/150 0.4 MG TAB SL PRN (09:38)
[2021-03-01] MEDS: GABAPENTIN 100 MG CAPSULE PO SCH ×2 (09:39→21:03)
[2021-03-01] MEDS: dilTIAZem HCL 60 MG TABLET PO SCH ×2 (09:39→21:04)
[2021-03-01] MEDS: DOCUSATE SODIUM 100 MG CAPSULE (FP) PO SCH ×2 (09:39→21:04)
[2021-03-01] MEDS: metoPROLOL SUCCINATE 25 MG TAB.SR.24H (FP) PO SCH ×2 (09:39→21:03)
[2021-03-01] MEDS: CHOLECALCIFEROL (VIT D3) 1,000 UNIT (25 MCG) TABLET PO SCH (09:40)
[2021-03-01] MEDS: PANTOPRAZOLE SODIUM 40 MG VIAL IVPUSH SCH ×2 (09:40→21:04)
[2021-03-01] MEDS: MULTIVIT-MINERALS ORAL LIQUID PO SCH (09:42)
[2021-03-01] MEDS: HEPARIN - 25,000 UNIT in SODIUM CHLORIDE 495 ML IV SCH ×2 (09:47→16:04)
[2021-03-01] MEDS ORDERED: CHOLECALCIFEROL (VIT D3) 1,000 UNIT (25 MCG) TABLET PO SCH (10:00)
[2021-03-01 10:02] LABS: MAGNESIUM 1.8 mg/dL (1.8-2.4)
[2021-03-01 10:04] LABS: CREATININE 1.9 mg/dL (0.55-1.3)
[2021-03-01 10:05] LABS: PHOSPHOROUS 3.8 mg/dL (2.5-4.9)
[2021-03-01 10:06] LABS: BILIRUBIN,TOTAL 0.6 mg/dL (0.2-1); TOT PROT 6.5 g/dl (6.4-8.2)
[2021-03-01 10:37] LABS: ANISOCYTOSIS 2+; MACROCYTOSIS 0; PLATELET ESTIMATE NORMAL
[2021-03-01] MEDS: HEPARIN NA (PORCINE) 5,000 UNITS/ML 1ML VIAL IVPUSH PRN (10:41)
[2021-03-01 11:53] LABS: HEMATOCRIT 23.6 % (32.4-45.2); HEMOGLOBIN 7.4 GM/dL (10.7-15.3); MCHC 31.4 g/dl (32.0-36.0); MEAN CELL VOLUME 62.5 fl (80-96); MEAN PLT VOLUME 8.7 fl (7.5-11.1); PLATELET COUNT 276 K/MM3 (134-434); RBC 3.78 M/mm3 (3.60-5.2); RDW 23.6 % (11.6-15.6); WHITE BLOOD COUNT 14.6 K/mm3 (4.0-10.0)
[2021-03-01 11:54] LABS: MCH 19.7 pg (25.7-33.7)
[2021-03-01] MEDS ORDERED: VANCOMYCIN 500 MG in DEXTROSE 5%-WATER - 100 ML IVPB SCH (15:45)
[2021-03-01 17:21] LABS: BASO % 0.9 % (0-2.0); EOS % 0.6 % (0-4.5); HEMATOCRIT 24.5 % (32.4-45.2); HEMOGLOBIN 7.7 GM/dL (10.7-15.3); LYMPH % 11.9 % (8-40); MCHC 31.3 g/dl (32.0-36.0); MEAN CELL VOLUME 63.9 fl (80-96); MEAN PLT VOLUME 8.7 fl (7.5-11.1); NEUT % 77.6 % (42.8-82.8); PLATELET COUNT 285 K/MM3 (134-434); RBC 3.83 M/mm3 (3.60-5.2); RDW 23.6 % (11.6-15.6); WHITE BLOOD COUNT 11.4 K/mm3 (4.0-10.0)
[2021-03-01] MEDS ORDERED: DEXTROSE 5% IVPB ONE (17:30)
[2021-03-01] MEDS ORDERED: VANCOMYCIN IVPB ONE (17:30)
[2021-03-01] MEDS ORDERED: WATER IVPB ONE (17:30)
[2021-03-01 17:54] LABS: ANISOCYTOSIS 2+; MACROCYTOSIS 0; OVALOCYTE 1+; PLATELET ESTIMATE NORMAL; TARGET CELLS 1+
[2021-03-02] MEDS ORDERED: PIPERACILLIN/TAZOBACTAM 2.25 GM VIAL IVPB ONE ×3 (01:05→16:42)
[2021-03-02] MEDS ORDERED: DEXTROSE 5%-WATER - 50 ML IVPB ONE ×3 (01:05→16:42)
[2021-03-02] MEDS: PIPERACILLIN/TAZOB 2.25 GM 2.25 GM in DEXTROSE 5%-WATER - 50 ML IVPB SCH ×3 (01:09→17:06)
[2021-03-02] MEDS ORDERED: PT OWN MED DRAWER 7, Y5N ONE ×2 (06:45→11:47)
[2021-03-02] MEDS: NITROGLYCERIN SUBLINGUAL 1/150 0.4 MG TAB SL PRN ×2 (06:45→07:38)
[2021-03-02] MEDS: AMINO ACIDS/PROTEIN HYDROLYS 30 ML LIQUID.PKT PO SCH ×2 (07:40→17:06)
[2021-03-02] MEDS ORDERED: FUROSEMIDE 40 MG/4 ML INJECTABLE VIAL IVPUSH ONE (08:02)
[2021-03-02] MEDS: ACETAMINOPHEN 325 MG TABLET (FP) PO PRN ×3 (08:23→21:35)
[2021-03-02] MEDS: metoPROLOL SUCCINATE 25 MG TAB.SR.24H (FP) PO SCH ×2 (09:03→21:34)
[2021-03-02] MEDS: GABAPENTIN 100 MG CAPSULE PO SCH ×2 (09:03→21:36)
[2021-03-02] MEDS: PANTOPRAZOLE SODIUM 40 MG VIAL IVPUSH SCH ×2 (09:04→21:34)
[2021-03-02] MEDS: MULTIVIT-MINERALS ORAL LIQUID PO SCH (09:04)
[2021-03-02] MEDS: dilTIAZem HCL 60 MG TABLET PO SCH ×2 (09:04→21:34)
[2021-03-02] MEDS: DOCUSATE SODIUM 100 MG CAPSULE (FP) PO SCH ×2 (09:04→21:35)
[2021-03-02] MEDS ORDERED: VANCOMYCIN 1 GM in D5W (PRE-DOCKED) 1,000 MG/250 ML IVPB ONE (09:45)
[2021-03-02 10:44] LABS: BASO % 0.3 % (0-2.0); HEMATOCRIT 23.5 % (32.4-45.2); HEMOGLOBIN 7.3 GM/dL (10.7-15.3); LYMPH % 6.6 % (8-40); MCHC 31.3 g/dl (32.0-36.0); MEAN CELL VOLUME 62.9 fl (80-96); MEAN PLT VOLUME 8.8 fl (7.5-11.1); MONO % 7.6 % (3.8-10.2); NEUT % 85.5 % (42.8-82.8); PLATELET COUNT 290 K/MM3 (134-434); RBC 3.73 M/mm3 (3.60-5.2); RDW 24.8 % (11.6-15.6); WHITE BLOOD COUNT 13.3 K/mm3 (4.0-10.0)
[2021-03-02 11:05] LABS: CALCIUM 8.2 mg/dL (8.5-10.1)
[2021-03-02 11:06] LABS: BLOOD UREA NITROGEN 37.6 mg/dL (7-18); MCH 19.7 pg (25.7-33.7)
[2021-03-02 11:09] LABS: CREATININE 1.8 mg/dL (0.55-1.3)
[2021-03-02] MEDS: ISOSORBIDE MONONITRATE 30 MG TAB.SR.24H (FP) PO SCH (11:33)
[2021-03-02] MEDS ORDERED: POTASSIUM CHLORIDE TABS 20 MEQ TABLET.ER (FP) PO ONE (13:22)
[2021-03-02 19:17] VITALS: BMI 39.6
[2021-03-02] MEDS ORDERED: ENOXAPARIN NA (PORCINE) 100 MG/1 ML DISP.SYRIN SQ SCH (22:00)
[2021-03-02] MEDS ORDERED: MELATONIN 5 MG TABLETS PO ONE (23:22)
[2021-03-03] MEDS ORDERED: PIPERACILLIN/TAZOBACTAM 2.25 GM VIAL IVPB ONE ×3 (01:25→17:42)
[2021-03-03] MEDS ORDERED: DEXTROSE 5%-WATER - 50 ML IVPB ONE ×3 (01:25→17:43)
[2021-03-03] MEDS: PIPERACILLIN/TAZOB 2.25 GM 2.25 GM in DEXTROSE 5%-WATER - 50 ML IVPB SCH ×3 (01:29→17:47)
[2021-03-03] MEDS ORDERED: PT OWN MED DRAWER 7, Y5N ONE ×3 (06:33→11:15)
[2021-03-03 06:56] LABS: HEMATOCRIT 22.1 % (32.4-45.2); HEMOGLOBIN 7.1 GM/dL (10.7-15.3); MCH 20.2 pg (25.7-33.7); MCHC 32.3 g/dl (32.0-36.0); MEAN CELL VOLUME 62.4 fl (80-96); MEAN PLT VOLUME 8.5 fl (7.5-11.1); PLATELET COUNT 298 K/MM3 (134-434); RBC 3.53 M/mm3 (3.60-5.2); RDW 24.4 % (11.6-15.6)
[2021-03-03 07:34] LABS: BLOOD UREA NITROGEN 40.5 mg/dL (7-18)
[2021-03-03 07:36] LABS: CALCIUM 8.7 mg/dL (8.5-10.1)
[2021-03-03 07:37] LABS: CREATININE 1.9 mg/dL (0.55-1.3)
[2021-03-03] MEDS: dilTIAZem HCL 60 MG TABLET PO SCH ×2 (09:19→21:56)
[2021-03-03] MEDS: PANTOPRAZOLE SODIUM 40 MG VIAL IVPUSH SCH ×2 (09:19→21:56)
[2021-03-03] MEDS: DOCUSATE SODIUM 100 MG CAPSULE (FP) PO SCH ×2 (09:19→21:56)
[2021-03-03] MEDS: ISOSORBIDE MONONITRATE 30 MG TAB.SR.24H (FP) PO SCH (09:19)
[2021-03-03] MEDS: metoPROLOL SUCCINATE 25 MG TAB.SR.24H (FP) PO SCH ×2 (09:20→21:54)
[2021-03-03] MEDS: GABAPENTIN 100 MG CAPSULE PO SCH ×2 (09:20→21:54)
[2021-03-03] MEDS: AMINO ACIDS/PROTEIN HYDROLYS 30 ML LIQUID.PKT PO SCH ×2 (09:21→17:47)
[2021-03-03] MEDS ORDERED: ENOXAPARIN NA (PORCINE) 100 MG/1 ML DISP.SYRIN SQ SCH (10:00)
[2021-03-03] MEDS ORDERED: FUROSEMIDE 40 MG/4 ML INJECTABLE VIAL IVPUSH ONE (11:30)
[2021-03-03 11:43] LABS: HEMATOCRIT 21.9 % (32.4-45.2); MCHC 31.4 g/dl (32.0-36.0); MEAN CELL VOLUME 63.3 fl (80-96); MEAN PLT VOLUME 9.1 fl (7.5-11.1); PLATELET COUNT 279 K/MM3 (134-434); RBC 3.46 M/mm3 (3.60-5.2); RDW 25.2 % (11.6-15.6); WHITE BLOOD COUNT 9.8 K/mm3 (4.0-10.0)
[2021-03-03 11:44] LABS: MCH 19.9 pg (25.7-33.7)
[2021-03-03 11:47] LABS: HEMOGLOBIN 6.9 GM/dL (10.7-15.3)
[2021-03-03] MEDS: MULTIVIT-MINERALS ORAL LIQUID PO SCH (11:49)
[2021-03-03] MEDS: ACETAMINOPHEN 325 MG TABLET (FP) PO PRN (12:33)
[2021-03-03] MEDS: MELATONIN 5 MG TABLETS PO PRN (21:57)
[2021-03-04] MEDS: PIPERACILLIN/TAZOB 2.25 GM 2.25 GM in DEXTROSE 5%-WATER - 50 ML IVPB SCH ×3 (03:00→17:24)
[2021-03-04] MEDS ORDERED: PIPERACILLIN/TAZOBACTAM 2.25 GM VIAL IVPB ONE ×3 (05:00→17:17)
[2021-03-04] MEDS ORDERED: DEXTROSE 5%-WATER - 50 ML IVPB ONE ×3 (05:00→17:17)
[2021-03-04] MEDS: ACETAMINOPHEN 325 MG TABLET (FP) PO PRN ×2 (05:27→21:35)
[2021-03-04] MEDS ORDERED: PT OWN MED DRAWER 7, Y5N ONE ×3 (08:32→14:23)
[2021-03-04 09:01] LABS: BASO % 0.5 % (0-2.0); EOS % 2.6 % (0-4.5); HEMATOCRIT 25.2 % (32.4-45.2); HEMOGLOBIN 8.1 GM/dL (10.7-15.3); LYMPH % 12.4 % (8-40); MCH 21.2 pg (25.7-33.7); MCHC 32.2 g/dl (32.0-36.0); MEAN CELL VOLUME 65.9 fl (80-96); MONO % 5.3 % (3.8-10.2); NEUT % 79.2 % (42.8-82.8); PLATELET COUNT 320 K/MM3 (134-434); RBC 3.83 M/mm3 (3.60-5.2); RDW 28.6 % (11.6-15.6)
[2021-03-04] MEDS: MULTIVIT-MINERALS ORAL LIQUID PO SCH (09:14)
[2021-03-04] MEDS: AMINO ACIDS/PROTEIN HYDROLYS 30 ML LIQUID.PKT PO SCH ×2 (09:14→17:24)
[2021-03-04] MEDS: GABAPENTIN 100 MG CAPSULE PO SCH ×2 (09:15→21:33)
[2021-03-04] MEDS: DOCUSATE SODIUM 100 MG CAPSULE (FP) PO SCH ×2 (09:15→21:34)
[2021-03-04] MEDS: ISOSORBIDE MONONITRATE 30 MG TAB.SR.24H (FP) PO SCH (09:15)
[2021-03-04] MEDS: metoPROLOL SUCCINATE 25 MG TAB.SR.24H (FP) PO SCH ×2 (09:15→21:34)
[2021-03-04] MEDS: dilTIAZem HCL 60 MG TABLET PO SCH ×2 (09:16→21:34)
[2021-03-04 09:32] LABS: ALBUMIN 2.5 g/dl (3.4-5.0); BLOOD UREA NITROGEN 42.3 mg/dL (7-18); CALCIUM 8.9 mg/dL (8.5-10.1); MAGNESIUM 1.8 mg/dL (1.8-2.4)
[2021-03-04 09:35] LABS: CREATININE 1.9 mg/dL (0.55-1.3); PHOSPHOROUS 4.6 mg/dL (2.5-4.9)
[2021-03-04 09:38] LABS: BILIRUBIN,TOTAL 0.7 mg/dL (0.2-1); TOT PROT 6.4 g/dl (6.4-8.2)
[2021-03-04] MEDS: PANTOPRAZOLE SODIUM 40 MG VIAL IVPUSH SCH ×2 (10:01→21:34)
[2021-03-04] MEDS ORDERED: POTASSIUM CHLORIDE ORAL LIQUID 20 MEQ/15 ML PO ONE (14:00)
[2021-03-04] MEDS ORDERED: FUROSEMIDE 40 MG/4 ML INJECTABLE VIAL IVPUSH ONE (14:30)
[2021-03-04] MEDS: NITROGLYCERIN SUBLINGUAL 1/150 0.4 MG TAB SL PRN (17:23)
[2021-03-04] MEDS: MELATONIN 5 MG TABLETS PO PRN (23:28)
[2021-03-05] MEDS: NITROGLYCERIN SUBLINGUAL 1/150 0.4 MG TAB SL PRN ×2 (01:00→13:27)
[2021-03-05] MEDS ORDERED: PIPERACILLIN/TAZOBACTAM 2.25 GM VIAL IVPB ONE ×2 (01:23→08:21)
[2021-03-05] MEDS ORDERED: DEXTROSE 5%-WATER - 50 ML IVPB ONE ×2 (01:24→08:22)
[2021-03-05] MEDS: PIPERACILLIN/TAZOB 2.25 GM 2.25 GM in DEXTROSE 5%-WATER - 50 ML IVPB SCH ×2 (01:58→09:06)
[2021-03-05] MEDS: ACETAMINOPHEN 325 MG TABLET (FP) PO PRN ×3 (05:44→21:10)
[2021-03-05 07:06] LABS: HEMOGLOBIN 8.5 GM/dL (10.7-15.3); MCH 21.4 pg (25.7-33.7); MCHC 32.8 g/dl (32.0-36.0); MEAN CELL VOLUME 65.4 fl (80-96); MEAN PLT VOLUME 8.4 fl (7.5-11.1); PLATELET COUNT 408 K/MM3 (134-434); RBC 3.97 M/mm3 (3.60-5.2); RDW 29.3 % (11.6-15.6); WHITE BLOOD COUNT 9.5 K/mm3 (4.0-10.0)
[2021-03-05 07:11] LABS: BASO % 0.6 % (0-2.0); EOS % 1.5 % (0-4.5); HEMOGLOBIN 8.5 GM/dL (10.7-15.3); LYMPH % 11.8 % (8-40); MCH 21.4 pg (25.7-33.7); MCHC 32.7 g/dl (32.0-36.0); MEAN CELL VOLUME 65.2 fl (80-96); MEAN PLT VOLUME 8.4 fl (7.5-11.1); MONO % 6.9 % (3.8-10.2); NEUT % 79.2 % (42.8-82.8); PLATELET COUNT 399 K/MM3 (134-434); RBC 3.98 M/mm3 (3.60-5.2); RDW 28.5 % (11.6-15.6); WHITE BLOOD COUNT 9.5 K/mm3 (4.0-10.0)
[2021-03-05 07:37] LABS: BLOOD UREA NITROGEN 39.3 mg/dL (7-18); CALCIUM 8.6 mg/dL (8.5-10.1)
[2021-03-05 07:38] LABS: ALBUMIN 2.7 g/dl (3.4-5.0); MAGNESIUM 1.9 mg/dL (1.8-2.4)
[2021-03-05 07:41] LABS: CREATININE 1.8 mg/dL (0.55-1.3)
[2021-03-05 07:44] LABS: BILIRUBIN,TOTAL 0.7 mg/dL (0.2-1); TOT PROT 6.3 g/dl (6.4-8.2)
[2021-03-05] MEDS: GABAPENTIN 100 MG CAPSULE PO SCH ×2 (09:04→21:10)
[2021-03-05] MEDS: metoPROLOL SUCCINATE 25 MG TAB.SR.24H (FP) PO SCH ×2 (09:04→21:10)
[2021-03-05] MEDS: DOCUSATE SODIUM 100 MG CAPSULE (FP) PO SCH ×2 (09:05→21:19)
[2021-03-05] MEDS: dilTIAZem HCL 60 MG TABLET PO SCH ×2 (09:05→21:10)
[2021-03-05] MEDS: AMINO ACIDS/PROTEIN HYDROLYS 30 ML LIQUID.PKT PO SCH ×2 (09:05→16:39)
[2021-03-05] MEDS: ISOSORBIDE MONONITRATE 30 MG TAB.SR.24H (FP) PO SCH (09:05)
[2021-03-05] MEDS: PANTOPRAZOLE SODIUM 40 MG VIAL IVPUSH SCH ×2 (09:07→21:18)
[2021-03-05] MEDS ORDERED: PT OWN MED DRAWER 7, Y5N ONE (09:08)
[2021-03-05] MEDS: MULTIVIT-MINERALS ORAL LIQUID PO SCH (09:08)
[2021-03-05 09:24] LABS: ANISOCYTOSIS 3+; MACROCYTOSIS 0; PLATELET ESTIMATE NORMAL
[2021-03-05] MEDS ORDERED: FUROSEMIDE 40 MG/4 ML INJECTABLE VIAL IVPUSH ONE (11:43)
[2021-03-06 07:25] LABS: EOS % 3.3 % (0-4.5); HEMATOCRIT 25.4 % (32.4-45.2); HEMOGLOBIN 8.3 GM/dL (10.7-15.3); LYMPH % 16.8 % (8-40); MCHC 32.6 g/dl (32.0-36.0); MEAN CELL VOLUME 64.5 fl (80-96); MONO % 9.5 % (3.8-10.2); NEUT % 69.4 % (42.8-82.8); PLATELET COUNT 381 K/MM3 (134-434); RBC 3.95 M/mm3 (3.60-5.2); RDW 28.6 % (11.6-15.6); WHITE BLOOD COUNT 8.1 K/mm3 (4.0-10.0)
[2021-03-06 07:30] LABS: INR 1.23 (0.83-1.09); PROTHROMBIN TIME (PATIENT) 14.8 SEC (9.7-13.0)
[2021-03-06 07:56] LABS: CALCIUM 8.6 mg/dL (8.5-10.1)
[2021-03-06 07:57] LABS: ALBUMIN 2.6 g/dl (3.4-5.0); BLOOD UREA NITROGEN 38.6 mg/dL (7-18); MAGNESIUM 1.7 mg/dL (1.8-2.4)
[2021-03-06 08:00] LABS: CREATININE 1.6 mg/dL (0.55-1.3); PHOSPHOROUS 4.8 mg/dL (2.5-4.9)
[2021-03-06 08:02] LABS: BILIRUBIN,TOTAL 0.6 mg/dL (0.2-1); TOT PROT 6.3 g/dl (6.4-8.2)
[2021-03-06] MEDS ORDERED: MAGNESIUM SULF 50% (8.12 MEQ/2 ML-1 GM VIAL) IVPB ONE (08:18)
[2021-03-06] MEDS: AMINO ACIDS/PROTEIN HYDROLYS 30 ML LIQUID.PKT PO SCH ×2 (09:23→17:02)
[2021-03-06] MEDS: dilTIAZem HCL 60 MG TABLET PO SCH ×2 (09:24→21:14)
[2021-03-06] MEDS: ISOSORBIDE MONONITRATE 30 MG TAB.SR.24H (FP) PO SCH (09:24)
[2021-03-06] MEDS: DOCUSATE SODIUM 100 MG CAPSULE (FP) PO SCH ×2 (09:24→21:15)
[2021-03-06] MEDS: PANTOPRAZOLE SODIUM 40 MG VIAL IVPUSH SCH ×2 (09:25→21:16)
[2021-03-06] MEDS: GABAPENTIN 100 MG CAPSULE PO SCH ×2 (09:25→21:15)
[2021-03-06] MEDS: metoPROLOL SUCCINATE 25 MG TAB.SR.24H (FP) PO SCH ×2 (09:26→21:15)
[2021-03-06] MEDS ORDERED: PT OWN MED DRAWER 7, Y5N ONE (09:30)
[2021-03-06] MEDS: MULTIVIT-MINERALS ORAL LIQUID PO SCH (09:33)
[2021-03-06] MEDS ORDERED: FUROSEMIDE 40 MG/4 ML INJECTABLE VIAL IVPUSH ONE (11:51)
[2021-03-06] MEDS: KCL 10 MEQ IVPB 10 MEQ/100 ML INFUS.BAG IVPB SCH ×3 (12:00→14:37)
[2021-03-06] MEDS ORDERED: VANCOMYCIN 1 GM in D5W (PRE-DOCKED) 1,000 MG/250 ML IVPB ONE (13:34)
[2021-03-06] MEDS ORDERED: VANCOMYCIN 1 GRAM (PRE-DOCKED) 1,000 MG/250 ML BAG IVPB ONE (14:15)
[2021-03-06] MEDS: ACETAMINOPHEN 325 MG TABLET (FP) PO PRN (21:13)
[2021-03-07 07:21] LABS: EOS % 2.3 % (0-4.5); HEMATOCRIT 26.2 % (32.4-45.2); HEMOGLOBIN 8.6 GM/dL (10.7-15.3); LYMPH % 13.1 % (8-40); MCH 21.1 pg (25.7-33.7); MCHC 32.7 g/dl (32.0-36.0); MEAN CELL VOLUME 64.6 fl (80-96); MEAN PLT VOLUME 7.8 fl (7.5-11.1); MONO % 9.6 % (3.8-10.2); PLATELET COUNT 367 K/MM3 (134-434); RBC 4.06 M/mm3 (3.60-5.2); RDW 28.5 % (11.6-15.6); WHITE BLOOD COUNT 8.9 K/mm3 (4.0-10.0)
[2021-03-07 07:42] LABS: CALCIUM 8.2 mg/dL (8.5-10.1)
[2021-03-07 07:43] LABS: ALBUMIN 2.8 g/dl (3.4-5.0); BLOOD UREA NITROGEN 37.2 mg/dL (7-18)
[2021-03-07 07:45] LABS: CREATININE 1.6 mg/dL (0.55-1.3)
[2021-03-07 07:46] LABS: PHOSPHOROUS 4.5 mg/dL (2.5-4.9)
[2021-03-07 07:47] LABS: BILIRUBIN,TOTAL 0.9 mg/dL (0.2-1); TOT PROT 6.4 g/dl (6.4-8.2)
[2021-03-07] MEDS: AMINO ACIDS/PROTEIN HYDROLYS 30 ML LIQUID.PKT PO SCH ×2 (08:06→17:10)
[2021-03-07] MEDS: ISOSORBIDE MONONITRATE 30 MG TAB.SR.24H (FP) PO SCH (09:29)
[2021-03-07] MEDS: dilTIAZem HCL 60 MG TABLET PO SCH ×2 (09:29→22:14)
[2021-03-07] MEDS: metoPROLOL SUCCINATE 25 MG TAB.SR.24H (FP) PO SCH ×2 (09:29→22:15)
[2021-03-07] MEDS: PANTOPRAZOLE SODIUM 40 MG VIAL IVPUSH SCH ×2 (09:29→22:15)
[2021-03-07] MEDS: GABAPENTIN 100 MG CAPSULE PO SCH ×2 (09:29→22:14)
[2021-03-07] MEDS: MULTIVIT-MINERALS ORAL LIQUID PO SCH (09:30)
[2021-03-07] MEDS: DOCUSATE SODIUM 100 MG CAPSULE (FP) PO SCH ×2 (09:30→22:15)
[2021-03-07] MEDS ORDERED: FUROSEMIDE 40 MG/4 ML INJECTABLE VIAL IVPUSH ONE (11:13)
[2021-03-07] MEDS: ACETAMINOPHEN 325 MG TABLET (FP) PO PRN ×3 (11:30→20:12)
[2021-03-07] MEDS: MELATONIN 5 MG TABLETS PO PRN (22:14)
[2021-03-08 08:00] LABS: BASO % 0.8 % (0-2.0); EOS % 3.2 % (0-4.5); HEMATOCRIT 26.4 % (32.4-45.2); HEMOGLOBIN 8.6 GM/dL (10.7-15.3); MCH 21.1 pg (25.7-33.7); MCHC 32.6 g/dl (32.0-36.0); MEAN CELL VOLUME 64.7 fl (80-96); MEAN PLT VOLUME 7.7 fl (7.5-11.1); MONO % 7.5 % (3.8-10.2); NEUT % 74.5 % (42.8-82.8); PLATELET COUNT 342 K/MM3 (134-434); RBC 4.07 M/mm3 (3.60-5.2); RDW 27.9 % (11.6-15.6); WHITE BLOOD COUNT 8.3 K/mm3 (4.0-10.0)
[2021-03-08 08:18] LABS: CALCIUM 8.5 mg/dL (8.5-10.1)
[2021-03-08 08:19] LABS: ALBUMIN 2.7 g/dl (3.4-5.0); BLOOD UREA NITROGEN 35.5 mg/dL (7-18); MAGNESIUM 2.1 mg/dL (1.8-2.4)
[2021-03-08 08:22] LABS: CREATININE 1.5 mg/dL (0.55-1.3)
[2021-03-08 08:23] LABS: BILIRUBIN,TOTAL 0.5 mg/dL (0.2-1)
[2021-03-08 08:24] LABS: TOT PROT 6.4 g/dl (6.4-8.2)
[2021-03-08] MEDS ORDERED: PT OWN MED DRAWER 7, Y5N ONE (10:20)
[2021-03-08] MEDS: CHOLECALCIFEROL (VIT D3) 1,000 UNIT (25 MCG) TABLET PO SCH (10:22)
[2021-03-08] MEDS: AMINO ACIDS/PROTEIN HYDROLYS 30 ML LIQUID.PKT PO SCH ×2 (10:22→16:50)
[2021-03-08] MEDS: dilTIAZem HCL 60 MG TABLET PO SCH ×2 (10:23→21:27)
[2021-03-08] MEDS: FUROSEMIDE 40 MG/4 ML INJECTABLE VIAL IVPUSH SCH (10:23)
[2021-03-08] MEDS: POTASSIUM CHLORIDE TABS 20 MEQ TABLET.ER (FP) PO SCH (10:23)
[2021-03-08] MEDS: MULTIVIT-MINERALS ORAL LIQUID PO SCH (10:23)
[2021-03-08] MEDS: PANTOPRAZOLE SODIUM 40 MG VIAL IVPUSH SCH ×3 (10:23→22:12)
[2021-03-08] MEDS: ISOSORBIDE MONONITRATE 30 MG TAB.SR.24H (FP) PO SCH (10:23)
[2021-03-08] MEDS: metoPROLOL SUCCINATE 25 MG TAB.SR.24H (FP) PO SCH ×2 (10:23→21:27)
[2021-03-08] MEDS: GABAPENTIN 100 MG CAPSULE PO SCH ×2 (10:23→21:27)
[2021-03-08] MEDS: DOCUSATE SODIUM 100 MG CAPSULE (FP) PO SCH ×2 (10:24→21:27)
[2021-03-08 10:38] LABS: ANISOCYTOSIS 3+; MACROCYTOSIS 0; PLATELET ESTIMATE NORMAL
[2021-03-08] MEDS: ACETAMINOPHEN 325 MG TABLET (FP) PO PRN ×3 (10:42→18:58)
[2021-03-08] MEDS ORDERED: PANTOPRAZOLE 40 MG TABLET PO ONE (22:03)
[2021-03-09] MEDS: ACETAMINOPHEN 325 MG TABLET (FP) PO PRN ×4 (02:50→21:18)
[2021-03-09 07:19] LABS: BASO % 1.1 % (0-2.0); HEMOGLOBIN 8.4 GM/dL (10.7-15.3); LYMPH % 15.2 % (8-40); MCHC 32.2 g/dl (32.0-36.0); MEAN CELL VOLUME 65.1 fl (80-96); MEAN PLT VOLUME 8.9 fl (7.5-11.1); MONO % 8.6 % (3.8-10.2); NEUT % 71.1 % (42.8-82.8); PLATELET COUNT 346 K/MM3 (134-434); RBC 3.99 M/mm3 (3.60-5.2); RDW 27.9 % (11.6-15.6); WHITE BLOOD COUNT 7.7 K/mm3 (4.0-10.0)
[2021-03-09 07:40] LABS: PHOSPHOROUS 5.1 mg/dL (2.5-4.9)
[2021-03-09] MEDS: PANTOPRAZOLE SODIUM 40 MG VIAL IVPUSH SCH ×2 (10:03→21:15)
[2021-03-09] MEDS ORDERED: PT OWN MED DRAWER 7, Y5N ONE (10:05)
[2021-03-09] MEDS: MULTIVIT-MINERALS ORAL LIQUID PO SCH (10:13)
[2021-03-09] MEDS: GABAPENTIN 100 MG CAPSULE PO SCH ×2 (10:13→21:15)
[2021-03-09] MEDS: POTASSIUM CHLORIDE TABS 20 MEQ TABLET.ER (FP) PO SCH (10:13)
[2021-03-09] MEDS: DOCUSATE SODIUM 100 MG CAPSULE (FP) PO SCH ×2 (10:13→21:22)
[2021-03-09] MEDS: dilTIAZem HCL 60 MG TABLET PO SCH ×2 (10:14→21:15)
[2021-03-09] MEDS: AMINO ACIDS/PROTEIN HYDROLYS 30 ML LIQUID.PKT PO SCH ×2 (10:14→17:21)
[2021-03-09] MEDS: FUROSEMIDE 40 MG/4 ML INJECTABLE VIAL IVPUSH SCH (10:20)
[2021-03-09] MEDS: metoPROLOL SUCCINATE 25 MG TAB.SR.24H (FP) PO SCH ×2 (11:18→21:14)
[2021-03-09] MEDS: ISOSORBIDE MONONITRATE 30 MG TAB.SR.24H (FP) PO SCH (11:19)
[2021-03-09 12:03] LABS: BLOOD UREA NITROGEN 39.3 mg/dL (7-18); CALCIUM 8.7 mg/dL (8.5-10.1); CREATININE 1.5 mg/dL (0.55-1.3)
[2021-03-09] MEDS: MELATONIN 5 MG TABLETS PO PRN (21:18)
[2021-03-10] MEDS: ACETAMINOPHEN 325 MG TABLET (FP) PO PRN ×4 (05:22→22:24)
[2021-03-10 07:35] LABS: BASO % 0.8 % (0-2.0); EOS % 3.4 % (0-4.5); HEMATOCRIT 27.1 % (32.4-45.2); HEMOGLOBIN 8.8 GM/dL (10.7-15.3); LYMPH % 12.3 % (8-40); MCH 20.9 pg (25.7-33.7); MCHC 32.5 g/dl (32.0-36.0); MEAN CELL VOLUME 64.2 fl (80-96); MEAN PLT VOLUME 8.5 fl (7.5-11.1); NEUT % 77.5 % (42.8-82.8); PLATELET COUNT 335 K/MM3 (134-434); RBC 4.22 M/mm3 (3.60-5.2); RDW 27.9 % (11.6-15.6)
[2021-03-10 07:39] LABS: INR 1.24 (0.83-1.09); PROTHROMBIN TIME (PATIENT) 14.9 SEC (9.7-13.0)
[2021-03-10 07:52] LABS: CALCIUM 8.6 mg/dL (8.5-10.1)
[2021-03-10 07:53] LABS: ALBUMIN 2.7 g/dl (3.4-5.0); BLOOD UREA NITROGEN 42.3 mg/dL (7-18); MAGNESIUM 1.9 mg/dL (1.8-2.4)
[2021-03-10 07:56] LABS: CREATININE 1.5 mg/dL (0.55-1.3); PHOSPHOROUS 4.5 mg/dL (2.5-4.9)
[2021-03-10 07:57] LABS: BILIRUBIN,TOTAL 0.9 mg/dL (0.2-1)
[2021-03-10 07:58] LABS: TOT PROT 6.5 g/dl (6.4-8.2)
[2021-03-10] MEDS: AMINO ACIDS/PROTEIN HYDROLYS 30 ML LIQUID.PKT PO SCH ×2 (09:00→17:22)
[2021-03-10] MEDS ORDERED: MAGNESIUM SULF 50% (8.12 MEQ/2 ML-1 GM VIAL) IVPB ONE (09:22)
[2021-03-10] MEDS: FUROSEMIDE 40 MG/4 ML INJECTABLE VIAL IVPUSH SCH (09:26)
[2021-03-10] MEDS: PANTOPRAZOLE SODIUM 40 MG VIAL IVPUSH SCH ×2 (09:26→21:39)
[2021-03-10] MEDS: dilTIAZem HCL 60 MG TABLET PO SCH ×2 (09:26→21:39)
[2021-03-10] MEDS: metoPROLOL SUCCINATE 25 MG TAB.SR.24H (FP) PO SCH ×2 (09:27→21:39)
[2021-03-10] MEDS: POTASSIUM CHLORIDE TABS 20 MEQ TABLET.ER (FP) PO SCH (09:27)
[2021-03-10] MEDS: GABAPENTIN 100 MG CAPSULE PO SCH ×2 (09:27→21:39)
[2021-03-10] MEDS: ISOSORBIDE MONONITRATE 30 MG TAB.SR.24H (FP) PO SCH (09:27)
[2021-03-10] MEDS: DOCUSATE SODIUM 100 MG CAPSULE (FP) PO SCH ×2 (09:28→21:44)
[2021-03-10] MEDS ORDERED: PT OWN MED DRAWER 7, Y5N ONE (09:36)
[2021-03-10] MEDS: ASPIRIN COATED 81 MG TABLET.EC PO SCH (09:44)
[2021-03-10] MEDS: MULTIVIT-MINERALS ORAL LIQUID PO SCH (09:44)
[2021-03-10] MEDS: MELATONIN 5 MG TABLETS PO PRN (21:38)
[2021-03-11] MEDS: ACETAMINOPHEN 325 MG TABLET (FP) PO PRN ×5 (03:36→23:01)
[2021-03-11 07:30] LABS: BASO % 0.9 % (0-2.0); EOS % 5.1 % (0-4.5); HEMATOCRIT 27.8 % (32.4-45.2); HEMOGLOBIN 8.9 GM/dL (10.7-15.3); LYMPH % 15.5 % (8-40); MCH 20.7 pg (25.7-33.7); MCHC 32.1 g/dl (32.0-36.0); MEAN CELL VOLUME 64.6 fl (80-96); MEAN PLT VOLUME 8.5 fl (7.5-11.1); MONO % 7.6 % (3.8-10.2); NEUT % 70.9 % (42.8-82.8); PLATELET COUNT 370 K/MM3 (134-434); RDW 27.3 % (11.6-15.6); WHITE BLOOD COUNT 7.9 K/mm3 (4.0-10.0)
[2021-03-11 07:33] LABS: CALCIUM 8.4 mg/dL (8.5-10.1)
[2021-03-11 07:34] LABS: BLOOD UREA NITROGEN 47.8 mg/dL (7-18)
[2021-03-11 07:37] LABS: CREATININE 1.6 mg/dL (0.55-1.3); MAGNESIUM 2.1 mg/dL (1.8-2.4); PHOSPHOROUS 4.5 mg/dL (2.5-4.9)
[2021-03-11 07:38] LABS: BILIRUBIN,TOTAL 0.6 mg/dL (0.2-1); TOT PROT 6.7 g/dl (6.4-8.2)
[2021-03-11] MEDS: AMINO ACIDS/PROTEIN HYDROLYS 30 ML LIQUID.PKT PO SCH ×2 (07:42→17:30)
[2021-03-11] MEDS ORDERED: PT OWN MED DRAWER 7, Y5N ONE (09:13)
[2021-03-11] MEDS: GABAPENTIN 100 MG CAPSULE PO SCH ×2 (09:37→21:10)
[2021-03-11] MEDS: dilTIAZem HCL 60 MG TABLET PO SCH ×2 (09:37→21:10)
[2021-03-11] MEDS: metoPROLOL SUCCINATE 25 MG TAB.SR.24H (FP) PO SCH ×2 (09:39→22:03)
[2021-03-11] MEDS: MULTIVIT-MINERALS ORAL LIQUID PO SCH (09:39)
[2021-03-11] MEDS: ISOSORBIDE MONONITRATE 30 MG TAB.SR.24H (FP) PO SCH (09:39)
[2021-03-11] MEDS: POTASSIUM CHLORIDE TABS 20 MEQ TABLET.ER (FP) PO SCH (09:39)
[2021-03-11] MEDS: PANTOPRAZOLE SODIUM 40 MG VIAL IVPUSH SCH ×2 (09:39→22:04)
[2021-03-11] MEDS: ASPIRIN COATED 81 MG TABLET.EC PO SCH (09:39)
[2021-03-11] MEDS: FUROSEMIDE 40 MG TABLET (FP) PO SCH (09:39)
[2021-03-11] MEDS: DOCUSATE SODIUM 100 MG CAPSULE (FP) PO SCH ×3 (09:40→21:17)
[2021-03-11] MEDS: HEPARIN NA (PORCINE) 5,000 UNITS/ML 1ML VIAL SQ SCH (21:09)
[2021-03-11] MEDS: MELATONIN 5 MG TABLETS PO PRN (21:10)
[2021-03-12] MEDS: HEPARIN NA (PORCINE) 5,000 UNITS/ML 1ML VIAL SQ SCH ×2 (05:50→14:37)
[2021-03-12 07:47] LABS: BASO % 1.2 % (0-2.0); EOS % 5.7 % (0-4.5); HEMATOCRIT 28.2 % (32.4-45.2); LYMPH % 15.8 % (8-40); MCH 20.3 pg (25.7-33.7); MCHC 31.8 g/dl (32.0-36.0); MEAN PLT VOLUME 8.5 fl (7.5-11.1); MONO % 8.1 % (3.8-10.2); NEUT % 69.2 % (42.8-82.8); PLATELET COUNT 341 K/MM3 (134-434); RBC 4.42 M/mm3 (3.60-5.2); RDW 27.4 % (11.6-15.6); WHITE BLOOD COUNT 7.4 K/mm3 (4.0-10.0)
[2021-03-12] MEDS: ACETAMINOPHEN 325 MG TABLET (FP) PO PRN ×2 (08:16→14:37)
[2021-03-12 08:18] LABS: ALBUMIN 2.8 g/dl (3.4-5.0); BLOOD UREA NITROGEN 50.9 mg/dL (7-18); CALCIUM 8.7 mg/dL (8.5-10.1); MAGNESIUM 2.1 mg/dL (1.8-2.4)
[2021-03-12 08:21] LABS: CREATININE 1.6 mg/dL (0.55-1.3)
[2021-03-12 08:22] LABS: PHOSPHOROUS 4.9 mg/dL (2.5-4.9)
[2021-03-12 08:23] LABS: BILIRUBIN,TOTAL 0.6 mg/dL (0.2-1)
[2021-03-12 08:25] LABS: TOT PROT 6.6 g/dl (6.4-8.2)
[2021-03-12] MEDS: DOCUSATE SODIUM 100 MG CAPSULE (FP) PO SCH (09:06)
[2021-03-12] MEDS ORDERED: PT OWN MED DRAWER 7, Y5N ONE (09:26)
[2021-03-12] MEDS: GABAPENTIN 100 MG CAPSULE PO SCH (09:31)
[2021-03-12] MEDS: ASPIRIN COATED 81 MG TABLET.EC PO SCH (09:31)
[2021-03-12] MEDS: AMINO ACIDS/PROTEIN HYDROLYS 30 ML LIQUID.PKT PO SCH ×2 (09:31→17:28)
[2021-03-12] MEDS: MULTIVIT-MINERALS ORAL LIQUID PO SCH (09:31)
[2021-03-12] MEDS: FUROSEMIDE 40 MG TABLET (FP) PO SCH (09:32)
[2021-03-12] MEDS: metoPROLOL SUCCINATE 25 MG TAB.SR.24H (FP) PO SCH (09:32)
[2021-03-12] MEDS: dilTIAZem HCL 60 MG TABLET PO SCH (09:32)
[2021-03-12] MEDS: ISOSORBIDE MONONITRATE 30 MG TAB.SR.24H (FP) PO SCH (09:32)
[2021-03-12] MEDS: POTASSIUM CHLORIDE TABS 20 MEQ TABLET.ER (FP) PO SCH (09:32)
[2021-03-12] MEDS: PANTOPRAZOLE SODIUM 40 MG VIAL IVPUSH SCH (09:41)
[2021-03-12 11:03] LABS: ANISOCYTOSIS 1+; MACROCYTOSIS 0; PLATELET ESTIMATE NORMAL
[2021-03-12 14:24] VITALS: BP 136/63; PULSE 73; TEMP 98.3
[2021-03-12] MEDS ORDERED: LINEZOLID 600 MG TABLET (RESTRICTED TO ID) PO ONE (15:00)
== END 2021-03-12 18:00 | DRG 668 ==
LOC: JER 18:43 → JERBED 23:40 → J4W 02-23 04:31
PROVIDERS: ADMIT Internal Medicine; ATTEND Internal Medicine
PROC: 0T5B8ZZ Destruction of Bladder, Via Natural or Artificial Opening Endoscopic (ICD-10-PCS; 2021-02-26)
PROC: 0TJB8ZZ Inspection of Bladder, Via Natural or Artificial Opening Endoscopic (ICD-10-PCS; 2021-02-26)
PROC: 30233N1 Transfusion of Nonautologous Red Blood Cells into Peripheral Vein, Percutaneous Approach (ICD-10-PCS; principal; 2021-02-26 13:30)
PROC: 0TBB8ZZ Excision of Bladder, Via Natural or Artificial Opening Endoscopic (ICD-10-PCS; 2021-02-26 13:30)
DX: N39.0 Urinary tract infection, site not specified (principal); I21.4 Non-ST elevation (NSTEMI) myocardial infarction; I50.33 Acute on chronic diastolic (congestive) heart failure; I48.92 Unspecified atrial flutter; I13.0 Hypertensive heart and chronic kidney disease with heart failure and stage 1 through stage 4 chronic kidney disease, or unspecified chronic kidney disease; N17.9 Acute kidney failure, unspecified; D62 Acute posthemorrhagic anemia; R07.89 Other chest pain; I25.10 Atherosclerotic heart disease of native coronary artery without angina pectoris; E78.5 Hyperlipidemia, unspecified; I48.91 Unspecified atrial fibrillation; H35.30 Unspecified macular degeneration; H54.61 Unqualified visual loss, right eye, normal vision left eye; J44.9 Chronic obstructive pulmonary disease, unspecified; E78.00 Pure hypercholesterolemia, unspecified; F32.9 Major depressive disorder, single episode, unspecified; D49.4 Neoplasm of unspecified behavior of bladder; M75.02 Adhesive capsulitis of left shoulder; E66.9 Obesity, unspecified; Z68.39 Body mass index [BMI] 39.0-39.9, adult; D64.9 Anemia, unspecified; D56.3 Thalassemia minor; N18.9 Chronic kidney disease, unspecified; R31.0 Gross hematuria; B95.2 Enterococcus as the cause of diseases classified elsewhere; B96.5 Pseudomonas (aeruginosa) (mallei) (pseudomallei) as the cause of diseases classified elsewhere; E87.6 Hypokalemia; I87.2 Venous insufficiency (chronic) (peripheral); R09.02 Hypoxemia; E87.70 Fluid overload, unspecified; Z79.01 Long term (current) use of anticoagulants; Z74.01 Bed confinement status
CPT/HCPCS: 36415; 36430; 36511; 71045-TC-FY; 74176-TC; 76775-TC; 76856-TC; 80048; 80053; 81003; 82272; 82436; 82550; 82553; 82570; 82607; 82728; 82746; 83540; 83550; 83735; 83880; 84100; 84133; 84300; 84443; 84484; 85025; 85027; 85045; 85610; 85730; 86850; 86900; 86901; 86922; 87086; 87186; 88307-TC; 93005; 93010; 93306-TC; 94760; 97162-GP; 99285-25; C9803; G0480; J0131; J1644; P9016; P9058; U0003; U0005

== ENCOUNTER 2021-11-19 11:02 | Inpatient (IN) | payer OTHER, BC ==
[2021-11-19 11:36] VITALS: BMI 43.0
[2021-11-19] MEDS ORDERED: ALBUTEROL SO4 2.5/IPRATROPIUM 0.5 INH SOL 3 ML VIAL.NEB. NEB ONE ×2 (12:26→12:29)
[2021-11-19] MEDS ORDERED: DIGOXIN 0.5 MG/2 ML AMPUL ONE (12:26)
[2021-11-19] MEDS ORDERED: DIGOXIN 0.5 MG/2 ML AMPUL IVPUSH ONE (12:29)
[2021-11-19 13:08] LABS: BASO % 0.2 % (0-2.0); HEMATOCRIT 30.5 % (32.4-45.2); HEMOGLOBIN 9.4 GM/dL (10.7-15.3); LYMPH % 7.5 % (8-40); MCHC 30.8 g/dl (32.0-36.0); MEAN CELL VOLUME 54.8 fl (80-96); MEAN PLT VOLUME 6.5 fl (7.5-11.1); MONO % 2.5 % (3.8-10.2); NEUT % 89.8 % (42.8-82.8); PLATELET COUNT 826 10^3/uL (134-434); RBC 5.56 M/mm3 (3.60-5.2); RDW 17.8 % (11.6-15.6)
[2021-11-19 13:09] LABS: MCH 16.9 pg (25.7-33.7); VENOUS BASE EXCESS -12.6 mmol/L (-2-2); VENOUS O2 SATURATION 52.8 % (70-80); VENOUS PCO2 46.4 mmHg (38-52)
[2021-11-19 13:15] LABS: VENOUS PH 7.149 (7.310-7.410)
[2021-11-19] MEDS ORDERED: LACTATED RINGERS SOLUTION 1,000 ML/1,000 ML INFUS.BAG IV STA (13:16)
[2021-11-19 13:25] LABS: INR 1.21 (0.83-1.09); PROTHROMBIN TIME (PATIENT) 13.9 SEC (9.7-13.0)
[2021-11-19] MEDS ORDERED: DAPTOMYCIN 320 MG in SODIUM CHLORIDE 50 ML IVPB ONE (13:37)
[2021-11-19] MEDS ORDERED: ALBUTEROL SO4 0.083% IH SOL 2.5 MG/3 ML VIAL.NEB. NEB ONE (13:43)
[2021-11-19] MEDS ORDERED: PIPERACILLIN/TAZOB 3.375 GM 3.375 GM in DEXTROSE 5%-WATER - 50 ML IVPB ONE (13:43)
[2021-11-19 13:45] LABS: ANISOCYTOSIS 3+; MACROCYTOSIS 0; OVALOCYTE 2+; PLATELET ESTIMATE INCREASED; TARGET CELLS 2+
[2021-11-19] MEDS ORDERED: PIPERACILLIN/TAZOB 3.375 GM 3.375 GM/50 ML BAG IVPB ONE (13:51)
[2021-11-19] MEDS ORDERED: ALBUTEROL SO4 0.5 % INH SOLN 2.5 MG/0.5 ML VIAL.NEB. NEB ONE (13:51)
[2021-11-19 13:56] LABS: CHLORIDE 92 mmol/L (98-107); SODIUM 122 mmol/L (136-145)
[2021-11-19 13:59] LABS: ALBUMIN 2.2 g/dl (3.4-5.0); BLOOD UREA NITROGEN 94.3 mg/dL (7-18); CALCIUM 8.4 mg/dL (8.5-10.1); CO2 12 mmol/L (21-32); MAGNESIUM 2.2 mg/dL (1.8-2.4)
[2021-11-19 14:02] LABS: CREATININE 5.9 mg/dL (0.55-1.3); SGOT/AST 33 U/L (15-37); SGPT/ALT 8 U/L (13-61)
[2021-11-19 14:03] LABS: BILIRUBIN,TOTAL 0.5 mg/dL (0.2-1); TOT PROT 6.8 g/dl (6.4-8.2)
[2021-11-19 14:04] LABS: ALK PHOS 189 U/L (45-117); N-TERMINAL BNP 17436.8 pg/ml (5-450)
[2021-11-19 14:05] LABS: ARTERIAL BLD GAS O2 SATURATION 99.2 % (95-98); ARTERIAL BLOOD GAS BASE EXCESS -13.7 mmol/L (-2-2); ARTERIAL BLOOD GAS PO2 202.2 mmHg (80-100); ARTERIAL BLOOD GAS pH 7.233 (7.350-7.450)
[2021-11-19 14:15] LABS: LACTIC ACID 2.5 mmol/L (0.4-2.0)
[2021-11-19 14:36] LABS: ANION GAP 18 MMOL/L (8-16); GLUCOSE,RANDOM 49 mg/dL (74-106)
[2021-11-19] MEDS ORDERED: DEXTROSE 50%-WATER - 25 GM/50 ML VIAL IVPUSH ONE ×3 (14:42→16:59)
[2021-11-19] MEDS ORDERED: CALCIUM GLUCONATE 10% - 1,000 MG/10 ML VIAL IVPUSH ONE ×2 (14:42→16:59)
[2021-11-19] MEDS ORDERED: DEXTROSE 50%-WATER 25 GM/50 ML DISP.SYRIN ONE ×2 (14:43→17:14)
[2021-11-19] MEDS ORDERED: CALCIUM GLUCONATE 10% - 1,000 MG/10 ML VIAL ONE ×2 (14:43→17:15)
[2021-11-19] MEDS ORDERED: SODIUM BICARBONATE 8.4% 50 MEQ/50 ML DISP.SYRIN IVPUSH SCH (15:30)
[2021-11-19] MEDS ORDERED: LACTATED RINGERS SOLUTION 1000 ML INFUS.BAG IV ONE (15:35)
[2021-11-19] MEDS ORDERED: PANTOPRAZOLE SODIUM 40 MG VIAL IVPUSH SCH (16:30)
[2021-11-19 16:37] LABS: CHLORIDE 92 mmol/L (98-107); SODIUM 122 mmol/L (136-145)
[2021-11-19 16:39] LABS: ALBUMIN 2.2 g/dl (3.4-5.0); BLOOD UREA NITROGEN 92.8 mg/dL (7-18); CO2 11 mmol/L (21-32)
[2021-11-19 16:42] LABS: SGOT/AST 32 U/L (15-37); SGPT/ALT 7 U/L (13-61)
[2021-11-19 16:44] LABS: BILIRUBIN,TOTAL 0.5 mg/dL (0.2-1); TOT PROT 6.8 g/dl (6.4-8.2)
[2021-11-19 16:45] LABS: ALK PHOS 184 U/L (45-117); ANION GAP 19 MMOL/L (8-16); GLUCOSE,RANDOM 46 mg/dL (74-106)
[2021-11-19] MEDS ORDERED: INSULIN REGULAR HUMAN 100 UNITS/ML *VIAL IVPUSH ONE (16:59)
[2021-11-19] MEDS ORDERED: SODIUM ZIRCONIUM CYCLOSILICATE (LOKELMA) 5 GM PACKET PO ONE (17:00)
[2021-11-19 17:10] LABS: URINE APPEARANCE TURBID; URINE COLOR BROWN
[2021-11-19] MEDS ORDERED: SODIUM CHLORIDE 1,000 ML IV STA ×2 (17:12)
[2021-11-19] MEDS ORDERED: SODIUM BICARBONATE 8.4% - 50 ML ONE (17:15)
[2021-11-19 17:37] LABS: EPI CELLS 3 /uL (0-25.1); HYALINE CASTS 1 /uL (0-3.1); URINE RBC 6 /uL (0-23.9); URINE WBC 78 /uL (0-25.8)
[2021-11-19 17:38] LABS: URINE BACTERIA 1000 /uL (0-1359)
[2021-11-19] MEDS ORDERED: DEXTROSE 5%-WATER - 50 ML IVPB ONE (18:10)
[2021-11-19] MEDS ORDERED: PIPERACILLIN/TAZOBACTAM 2.25 GM VIAL IVPB ONE (18:10)
[2021-11-19 18:30] LABS: CREATININE, URINE RANDOM < 13.0 mg/dL (30-150)
[2021-11-19] MEDS: HEPARIN NA (PORCINE) 5,000 UNITS/ML 1ML VIAL SQ SCH ×2 (18:44→21:50)
[2021-11-19] MEDS: PIPERACILLIN/TAZOB 2.25 GM 2.25 GM in DEXTROSE 5%-WATER - 50 ML IVPB SCH (18:44)
[2021-11-19] MEDS: DEXTROSE 5%-WATER - 1,000 ML with SODIUM BICARBONATE 8.4% - 150 MEQ IV SCH ×2 (19:00→22:00)
[2021-11-19 20:28] LABS: CREATININE 5.3 mg/dL (0.55-1.3)
[2021-11-19] MEDS ORDERED: SODIUM CHLORIDE 1,000 ML IV SCH (20:30)
[2021-11-19] MEDS ORDERED: NOREPINEPHRINE BITARTRATE 16,000 MCG in SODIUM CHLORIDE 484 ML IV SCH (20:45)
[2021-11-19] MEDS: MORPHINE SULFATE/0.9% NACL/PF 100 MG/100 ML BAG IVPB SCH ×3 (21:32→22:31)
[2021-11-19] MEDS ORDERED: CHLORHEXIDINE GLUCONATE 4% CLEANSER FOR DECOLONIZATION TP SCH (22:00)
[2021-11-19] MEDS ORDERED: PIPERACILLIN/TAZOB 2.25 GM 2.25 GM in DEXTROSE 5%-WATER - 50 ML IVPB SCH (22:00)
[2021-11-19] MEDS ORDERED: LORazepam 2 MG/ML SDV VIAL IVPUSH PRN (22:16)
[2021-11-19] MEDS: MUPIROCIN 2% TOPICAL OINTMENT FOR DECOLONIZATION NS SCH (23:34)
[2021-11-20] MEDS ORDERED: PIPERACILLIN/TAZOBACTAM 2.25 GM VIAL IVPB ONE ×2 (00:47→09:15)
[2021-11-20] MEDS ORDERED: DEXTROSE 5%-WATER - 50 ML IVPB ONE ×2 (00:47→09:15)
[2021-11-20] MEDS: PIPERACILLIN/TAZOB 2.25 GM 2.25 GM in DEXTROSE 5%-WATER - 50 ML IVPB SCH ×2 (01:02→09:59)
[2021-11-20] MEDS: MUPIROCIN 2% TOPICAL OINTMENT FOR DECOLONIZATION NS SCH (10:00)
[2021-11-20] MEDS ORDERED: METOPROLOL TARTRATE 5 MG/5 ML VIAL ONE (10:41)
[2021-11-20] MEDS ORDERED: LORazepam 2 MG/ML SDV VIAL IVPUSH PRN (20:45)
[2021-11-20] MEDS ORDERED: MORPHINE SULFATE/0.9% NACL/PF 100 MG/100 ML BAG IVPB SCH (21:10)
[2021-11-21] MEDS: MORPHINE SULFATE/0.9% NACL/PF 100 MG/100 ML BAG IVPB SCH ×2 (11:41→18:44)
[2021-11-22] MEDS: MORPHINE SULFATE/0.9% NACL/PF 100 MG/100 ML BAG IVPB SCH (06:57)
[2021-11-22 12:28] VITALS: BP 50/30; PULSE 56; TEMP 97.2
== END 2021-11-22 13:05 | disposition expired | DRG 871 ==
LOC: JER 11:02 → JERBED 13:53 → JICU 17:21 → J8W 11-20 20:43
PROVIDERS: ADMIT Internal Medicine; ATTEND Internal Medicine
PROC: 02HV33Z Insertion of Infusion Device into Superior Vena Cava, Percutaneous Approach (ICD-10-PCS; principal; 2021-11-19)
PROC: B548ZZA Ultrasonography of Superior Vena Cava, Guidance (ICD-10-PCS; 2021-11-19)
DX: A41.9 Sepsis, unspecified organism (principal); R65.21 Severe sepsis with septic shock; J96.01 Acute respiratory failure with hypoxia; I50.32 Chronic diastolic (congestive) heart failure; I48.92 Unspecified atrial flutter; N17.9 Acute kidney failure, unspecified; E87.2 Acidosis; I13.0 Hypertensive heart and chronic kidney disease with heart failure and stage 1 through stage 4 chronic kidney disease, or unspecified chronic kidney disease; E87.1 Hypo-osmolality and hyponatremia; N39.0 Urinary tract infection, site not specified; I25.10 Atherosclerotic heart disease of native coronary artery without angina pectoris; I48.91 Unspecified atrial fibrillation; E78.5 Hyperlipidemia, unspecified; I87.2 Venous insufficiency (chronic) (peripheral); D64.9 Anemia, unspecified; Z74.01 Bed confinement status; J44.9 Chronic obstructive pulmonary disease, unspecified; F32.A Depression, unspecified; D56.3 Thalassemia minor; E87.5 Hyperkalemia; E16.2 Hypoglycemia, unspecified; N18.9 Chronic kidney disease, unspecified; R74.01 Elevation of levels of liver transaminase levels
CPT/HCPCS: 36415; 36600; 71045-TC-FY; 80048; 80053; 81003; 82436; 82550; 82553; 82570; 82803; 82962; 83605; 83735; 83880; 83930; 83935; 84300; 84484; 85025; 85610; 87040; 87086; 87186; 87804; 94660; 99291; C9803; J0878; J1644; U0003; U0005